=== PATIENT | male | born 1955 | race Caucasian/White ===

== ENCOUNTER 2016-07-24 18:08 | Inpatient (IN) | payer OTHER ==
[2016-07-24] MEDS ORDERED: Sodium Chloride 0.9% 1,000 ML IV SCH (18:45)
[2016-07-24] MEDS ORDERED: Azithromycin 250 MG Tab PO ONE (19:02)
[2016-07-24] MEDS ORDERED: cefTRIAXone 1 GM Vial IVPUSH ONE (19:02)
--- NOTE | 2016-07-24 19:02 | EDM.PDOC ---
Addendum entered and electronically signed by Eric Pederson PA 07/25/16 17:00 : PLEASE USE ER H&P FOR ADMISSION H&P Original Note: ED HISTORY OF PRESENT ILLNESS - General Chief Complaint: Respiratory Problem Stated Complaint: SHORT OF BREATH, COLD SYMPTOMS Time Seen by Provider: 07/24/16 18:37 Source of Information: Reports: Patient History Limitations: Reports: No limitations - History of Present Illness INITIAL COMMENTS - FREE TEXT/NARRATIVE: PT STATES HE HAS A PERSISTENT PRODUCTIVE COUGH AND HAS BEEN FEELING SHORT OF BREATH OVER LAST FEW DAYS. DEVELOPED FEVER TODAY. DENIES CP, OUT OF COUNTRY TRAVEL, FAMILY MEMBERS WITH SAME SYMPTOMS, N/V/D. Symptom Onset Date: 07/22/16 Timing/Duration: Reports: Day(s): Severity: mild Location, General: Reports: chest Improves with: Reports: None Worsens with: Reports: Movement Associated Symptoms (General): Reports: cough, cough w sputum, fever/chills, shortness of breath. Denies: chest pain, nausea/vomiting, syncope - Related Data Allergies/ADRs: Allergies Allergy/AdvReac Type Severity Reaction Status Date / Time No Known Drug Allergies Allergy NKDA Verified 07/24/16 19:07 Home Meds: Home Meds Meloxicam [Meloxicam] 15 mg PO DAILY 07/24/16 [History] oxyCODONE ER [OxyCONTIN] 40 mg PO BID 07/24/16 [History] oxyCODONE HCl/Acetaminophen [oxyCODONE-Acetaminophen 5-325] 1 tab PO Q4H PRN [History] ED ROS GENERAL - Review of Systems Review Of Systems: ROS reveals no pertinent complaints other than HPI. Constitutional: Reports: fever, chills HEENT: Reports: No symptoms Respiratory: Reports: Shortness of Breath, Cough, Sputum Cardiovascular: Reports: No symptoms Endocrine: Reports: no symptoms GI/Abdominal: Reports: No symptoms : Reports: no symptoms Musculoskeletal: Reports: no symptoms Skin: Reports: no symptoms Neurological: Reports: No Symptoms Psychiatric: Reports: No symptoms Hematologic/Lymphatic: Reports: no symptoms Immunologic: Reports: no symptoms ED EXAM, GENERAL - Physical Exam Exam: See Below Exam Limited By: No limitations General Appearance: alert, WD/WN, no apparent distress Eye Exam: bilateral eye: normal inspection Ears: normal canal, normal TMs Nose: normal inspection, normal mucosa, no blood Throat/Mouth: Normal inspection, Normal oropharynx, No airway compromise Head: atraumatic, normocephalic Neck: normal inspection Respiratory/Chest: no respiratory distress, rales (RIGHT BASE), rhonchi (BILAT APICAL) Cardiovascular: no murmur, no rub, tachycardia GI/Abdominal: normal bowel sounds, soft, non tender Back Exam: No: CVA tenderness (L), CVA tenderness (R) Extremities: normal inspection, no pedal edema Neurological: alert, oriented, normal cognition Psychiatric: normal affect, normal mood Skin Exam: Warm, Dry, Intact, Normal color, No rash Lymphatic: no adenopathy Course - Vital Signs Last Recorded V/S: Last Vital Signs Temp 101.8 F H 07/24/16 18:14 Pulse 114 H 07/24/16 18:14 Resp 24 H 07/24/16 18:14 BP 157/64 H 07/24/16 18:14 Pulse Ox 82 L 07/24/16 18:14 - Orders/Labs/Meds Orders: Active Orders 24 hr Category Date Time Status Peripheral IV Care [RC] . DIRECTED Care 07/24/16 18:39 Ordered Chest 2V [CR] Stat Exams 07/24/16 18:32 Ordered CBC WITH AUTO DIFF [HEME] Stat Lab 07/24/16 18:32 Ordered COMPREHENSIVE METABOLIC PN,CMP [CHEM] Stat Lab 07/24/16 18:38 Ordered CULTURE BLOOD [BC] Stat Lab 07/24/16 18:39 Ordered CULTURE BLOOD [BC] Stat Lab 07/24/16 18:39 Ordered INFLUENZA A+B AG SCREEN [RM] Stat Lab 07/24/16 18:48 Uncollected LACTIC ACID [CHEM] Stat Lab 07/24/16 18:38 Ordered UA W/MICROSCOPIC [URIN] Stat Lab 07/24/16 18:38 Uncollected Sodium Chloride 0.9% [Normal Saline] 1,000 ml Med 07/24/16 18:45 Ordered IV .BOLUS Sodium Chloride 0.9% [Syrex Flush] Med 07/24/16 18:38 Ordered 5 ml FLUSH Q8HR PRN Blood Culture x2 Reflex Set [OM.PC] Stat Oth 07/24/16 18:38 Ordered Peripheral IV Insertion Adult [OM.PC] Urgent Oth 07/24/16 18:38 Ordered Medication Orders Sodium Chloride (Normal Saline) 1,000 mls @ 1,000 mls/hr IV .BOLUS RANDA Sodium Chloride (Syrex Flush) 5 ml FLUSH Q8HR PRN PRN Reason: Keep Vein Open Meds: Medications Generic Name Dose Route Start Last Admin Trade Name Freq PRN Reason Stop Dose Admin Sodium Chloride 1,000 mls @ 1,000 mls/hr 07/24/16 18:45 Normal Saline IV .BOLUS RANDA Sodium Chloride 5 ml 07/24/16 18:38 Syrex Flush FLUSH Q8HR PRN Keep Vein Open - Radiology Interpretation Free Text/Narrative:: CXR SHOWS RIGHT LOWER LOBE PNEUMONIA - Re-Assessments/Exams Free Text/Narrative Re-Assessment/Exam: 07/24/16 19:39 PT NONTOXIC APPEARING, MAINTAINING SAT >92 ON NC. WILL ADMIT INPATIENT FOR PNEUMONIA / HYPOXIA Departure - Departure Time of Disposition: 19:42 Disposition: Admitted As Inpatient 64 Condition: fair Clinical Impression: Hypoxia Pneumonia Qualifiers: Pneumonia type: due to unspecified organism Laterality: right Lung location: lower lobe of lung Qualified Code(s): J18.1 - Lobar pneumonia, unspecified organism Fever Qualifiers: Fever type: unspecified Qualified Code(s): R50.9 - Fever, unspecified Forms: ED Department Discharge - My Orders Last 24 Hours: My Active Orders 07/24/16 18:32 Chest 2V [CR] Stat CBC WITH AUTO DIFF [HEME] Stat 07/24/16 18:38 COMPREHENSIVE METABOLIC PN,CMP [CHEM] Stat LACTIC ACID [CHEM] Stat UA W/MICROSCOPIC [URIN] Stat Sodium Chloride 0.9% [Syrex Flush] 5 ml FLUSH Q8HR PRN Blood Culture x2 Reflex Set [OM.PC] Stat Peripheral IV Insertion Adult [OM.PC] Urgent 07/24/16 18:39 Peripheral IV Care [RC] . DIRECTED CULTURE BLOOD [BC] Stat CULTURE BLOOD [BC] Stat 07/24/16 18:45 Sodium Chloride 0.9% [Normal Saline] 1,000 ml IV .BOLUS 07/24/16 18:48 INFLUENZA A+B AG SCREEN [RM] Stat - Assessment/Plan Last 24 Hours: My Active Orders 07/24/16 18:32 Chest 2V [CR] Stat CBC WITH AUTO DIFF [HEME] Stat 07/24/16 18:38 COMPREHENSIVE METABOLIC PN,CMP [CHEM] Stat LACTIC ACID [CHEM] Stat UA W/MICROSCOPIC [URIN] Stat Sodium Chloride 0.9% [Syrex Flush] 5 ml FLUSH Q8HR PRN Blood Culture x2 Reflex Set [OM.PC] Stat Peripheral IV Insertion Adult [OM.PC] Urgent 07/24/16 18:39 Peripheral IV Care [RC] . DIRECTED CULTURE BLOOD [BC] Stat CULTURE BLOOD [BC] Stat 07/24/16 18:45 Sodium Chloride 0.9% [Normal Saline] 1,000 ml IV .BOLUS 07/24/16 18:48 INFLUENZA A+B AG SCREEN [RM] Stat Assessment:: PNEUMONIA Plan: ADMIT INPATIENT
[2016-07-24] MEDS ORDERED: Acetaminophen 500 MG Tab PO ONE (19:03)
[2016-07-24 19:25] LABS: CHLORIDE,CL 98 mmol/L (98-115); SODIUM,NA 139 mmol/L (136-145)
[2016-07-24] MEDS ORDERED: Albuterol/Ipratropium 3.0-0.5 MG/3 ML Neb Soln NEB ONE (19:28)
[2016-07-24] MEDS ORDERED: Albuterol/Ipratropium 3.0-0.5 MG/3 ML Neb Soln ONE (19:33)
[2016-07-24] MEDS ORDERED: Acetaminophen 325 MG Tab PO PRN (19:35)
[2016-07-24] MEDS: Sodium Chloride 0.9% 1,000 ML IV SCH (20:52)
[2016-07-24] MEDS: oxyCODONE 5 MG Tab PO PRN (21:02)
[2016-07-25] MEDS: oxyCODONE 5 MG Tab PO PRN ×2 (00:20→05:00)
[2016-07-25] MEDS: guaiFENesin/Dextromethorphan 100-10 MG/5 ML Soln 5 ML Cup PO PRN (02:02)
[2016-07-25] MEDS: Sodium Chloride 0.9% 1,000 ML IV SCH ×2 (05:03→14:06)
[2016-07-25] MEDS: Albuterol/Ipratropium 3.0-0.5 MG/3 ML Neb Soln NEB PRN ×3 (05:26→19:48)
[2016-07-25] MEDS: Nicotine 14 MG/24 Hr Patch TRDERM SCH ×2 (06:01→19:53)
[2016-07-25] MEDS: oxyCODONE ER 10 MG TAB.ER PO SCH ×2 (06:02→21:02)
[2016-07-25] MEDS ORDERED: cefTRIAXone 1 GM in Sodium Chloride 0.9% 50 ML IV SCH (09:00)
[2016-07-25 09:31] LABS: CHLORIDE,CL 102 mmol/L (98-115); SODIUM,NA 140 mmol/L (136-145)
--- NOTE | 2016-07-25 09:44 | PCM.PN ---
- General Info Date of Service: 07/25/16 Admission Dx/Problem (Free Text): Right lower lobe pneumonia. - Review of Systems Systems Review Comment:: Dre is seen today on inpatient rounds. He was admitted 07/24/16 with right lower lobe pneumonia with associated hypoxia. Interestingly enough he did not have an elevated WBC but did have a left shift. He was also febrile. He states "this whole winter I just haven't felt well, do you think this could have been brewing for awhile?" He states today he feels better than yesterday. He notes yesterday he "could hardly get off the couch so I figured I better get in and be seen". His appetite has been good. - Patient Data Vitals - most recent: Last Vital Signs Temp 98.7 F 07/25/16 05:05 Pulse 92 07/25/16 05:26 Resp 24 H 07/25/16 05:05 BP 152/82 H 07/25/16 05:05 Pulse Ox 93 L 07/25/16 07:30 Weight - most recent: 201 lb 4.8 oz I&O - last 24 hours: Intake & Output 07/24/16 07/25/16 07/25/16 22:59 06:59 14:59 Intake Total 1540 1120 Output Total 0 400 Balance 1540 720 Lab Results last 24 hrs: Laboratory Results - last 24 hr 07/25/16 07/25/16 07/25/16 Range/Units 04:50 08:50 08:50 WBC 7.8 (5.0-10.0) 10^3/uL RBC 3.92 L (4.50-6.00) 10^6/uL Hgb 13.1 (13.0-17.0) g/dL Hct 39.2 L (40.0-52.0) % MCV 100.1 H (82.0-92.0) fL MCH 33.5 H (27.0-31.0) pg MCHC 33.4 (32.0-36.0) g/dL RDW 12.4 (11.5-14.5) % Plt Count 175 (150-300) 10^3/uL MPV 6.9 L (7.4-10.4) fL Neut % (Auto) 80.9 H (50.0-70.0) % Lymph % (Auto) 12.8 L (20.0-40.0) % [place] % (Auto) 6.1 (2.0-8.0) % Eos % (Auto) 0.2 L (1.0-3.0) % Baso % (Auto) 0.0 (0.0-1.0) % Neut # (Auto) 6.3 (2.5-7.0) 10^3/uL Lymph # (Auto) 1.0 (1.0-4.0) 10^3/uL [place] # (Auto) 0.5 (0.1-0.8) 10^3/uL Eos # (Auto) 0.0 L (0.1-0.3) 10^3/uL Baso # (Auto) 0.0 (0.0-0.1) 10^3/uL Sodium 140 (136-145) mmol/L Potassium 3.5 (3.3-5.3) mmol/L Chloride 102 (98-115) mmol/L Carbon Dioxide 28.4 (21.0-32.0) mmol/L BUN 17 (6-25) mg/dL Creatinine 0.55 (0.51-1.17) mg/dL Est Cr Clr Drug Dosing 139.26 mL/min Estimated GFR (MDRD) > 60 mL/min Glucose 179 H (70-110) mg/dL Hemoglobin A1c 5.8 H (4.3-5.7) % Calcium 8.7 (8.7-10.3) mg/dL Troponin I < 0.04 (0.00-0.070) ng/mL Specimen Type Urinvoid Urine Color Ronda H (YELLOW) Urine Appearance Clear (CLEAR) Urine pH 6.0 (5.0-9.0) Ur Specific [place] >= 1.030 (1.005-1.030) Urine Protein >=300 H (NEGATIVE) mg/dL Urine Glucose (UA) 100 H (NEGATIVE) mg/dL Urine Ketones Trace H (NEGATIVE) mg/dL Urine Occult Blood Large H (NEGATIVE) Urine Nitrite Negative (NEGATIVE) Urine Bilirubin Small H (NEGATIVE) Urine Urobilinogen 2.0 H (0.2-1.0) E.U./dL Ur Leukocyte Esterase Negative (NEGATIVE) Urine RBC 0-5 /HPF Urine WBC 0-5 /HPF Ur Epithelial Cells Rare /LPF Urine Bacteria Occasional (NONE TO FEW) /HPF Urine Mucus Moderate H (NEGATIVE) /LPF Med Orders - Current: Current Medications Acetaminophen (Tylenol) 650 mg PO Q4H PRN PRN Reason: Pain (Mild 1-3)/fever Last Admin: 07/25/16 00:21 Dose: 650 mg Albuterol/Ipratropium (Duoneb 3.0-0.5 Mg/3 Ml) 3 ml NEB Q4H PRN PRN Reason: Shortness Of Breath/wheezing Last Admin: 07/25/16 05:26 Dose: 3 ml Ceftriaxone Sodium (Rocephin) 1 gm IV Q24H RANDA Guaifenesin/Phenylephrine HCl (Robitussin Dm) 10 ml PO Q4H PRN PRN Reason: Cough Last Admin: 07/25/16 02:02 Dose: 10 ml Sodium Chloride (Normal Saline) 1,000 mls @ 1,000 mls/hr IV .BOLUS [facility] Last Admin: 07/24/16 19:00 Dose: 1,000 mls/hr Sodium Chloride (Normal Saline) 1,000 mls @ 125 mls/hr IV ASDIRECTED [facility] Last Admin: 07/25/16 05:03 Dose: 125 mls/hr Azithromycin 500 mg/ Sodium (Chloride) 250 mls @ 250 mls/hr IV Q24H [facility] Nicotine (Habitrol) 14 mg TRDERM DAILY [facility] Last Admin: 07/25/16 06:01 Dose: 14 mg Oxycodone HCl (Oxycontin) 40 mg PO BID [facility] Last Admin: 07/25/16 06:02 Dose: 40 mg Oxycodone/Acetaminophen (Percocet 325-5 Mg) 2 tab PO Q4H PRN PRN Reason: Pain Sodium Chloride (Syrex Flush) 5 ml FLUSH Q8HR PRN PRN Reason: Keep Vein Open Discontinued Medications Acetaminophen (Tylenol Extra Strength) 1,000 mg PO ONETIME ONE Stop: 07/24/16 19:04 Last Admin: 07/24/16 19:16 Dose: 1,000 mg Albuterol/Ipratropium (Duoneb 3.0-0.5 Mg/3 Ml) 3 ml NEB ONETIME ONE Stop: 07/24/16 19:29 Last Admin: 07/24/16 19:39 Dose: 3 ml Albuterol/Ipratropium (Duoneb 3.0-0.5 Mg/3 Ml) Confirm Administered Dose 3 ml .ROUTE .STK-MED ONE Stop: 07/24/16 19:34 Last Admin: 07/25/16 01:11 Dose: Not Given Azithromycin (Zithromax) 500 mg PO ONETIME ONE Stop: 07/24/16 19:03 Last Admin: 07/24/16 19:16 Dose: 500 mg Ceftriaxone Sodium (Rocephin) 1 gm IVPUSH ONETIME ONE Stop: 07/24/16 19:03 Last Admin: 07/24/16 19:16 Dose: 1 gm Oxycodone HCl (Oxycodone) 5 mg PO Q4H PRN PRN Reason: Pain (moderate 4-6) Last Admin: 07/25/16 05:00 Dose: 5 mg - Exam Quality Assessment: supplemental oxygen General: alert, oriented, cooperative, no acute distress Lungs: Normal respiratory effort, Crackles (Right lung base) Cardiovascular: Regular Rate, Regular Rhythm, No Murmurs Abdomen: bowel sounds present Extremities: no edema - Problem List & Annotations (1) Right lower lobe pneumonia SNOMED Code(s): 971077215 Code(s): J18.1 - LOBAR PNEUMONIA, UNSPECIFIED ORGANISM Status: Acute Current Visit: Yes (2) Hypoxia SNOMED Code(s): 300471573, 669555394 Code(s): R09.02 - HYPOXEMIA Status: Acute Current Visit: Yes (3) Blood glucose elevated SNOMED Code(s): 28571825 Code(s): R73.9 - HYPERGLYCEMIA, UNSPECIFIED Status: Acute Current Visit: Yes - Problem List Review Problem List Initiated/Reviewed/Updated: Yes - My Orders Last 24 Hours: My Active Orders 07/25/16 01:19 Dextromethorphan/guaiFENesin [Robitussin DM] 10 ml PO Q4H PRN 07/25/16 08:59 Acetaminophen/oxyCODONE [Percocet 325-5 MG] 2 tab PO Q4H PRN 07/25/16 09:00 Azithromycin [Zithromax] 500 mg Sodium Chloride 0.9% [Normal Saline] 250 ml IV Q24H cefTRIAXone [Rocephin] 1 gm IV Q24H 07/25/16 09:43 Respiratory Care Assess and Treatment [CONS] Routine - Plan Plan:: Will continue with azithromycin and rocephin. He has blood and sputum cultures ordered. Will continue with home pain medications. He has an elevated blood glucose in 2 readings, I checked an A1C which was 5.8. Will need follow-up for this as an outpatient but no evidence of diabetes currently. Will consult with RT as he is on oxygen currently and this is not something he has needed at home.
[2016-07-25] MEDS: Acetaminophen/oxyCODONE 325-5 MG Tab PO PRN ×3 (11:05→21:17)
[2016-07-25] MEDS: cefTRIAXone 1 GM Vial IV SCH (11:05)
[2016-07-25] MEDS: Azithromycin 500 MG in Sodium Chloride 0.9% 250 ML IV SCH (12:08)
[2016-07-25] MEDS ORDERED: LORazepam 0.5 MG Tab ONE (20:22)
[2016-07-25] MEDS ORDERED: Dexamethasone 4 MG/ML SDV ONE (20:22)
[2016-07-25] MEDS ORDERED: Budesonide 0.5 MG/2 ML Neb Susp ONE (20:22)
[2016-07-26] MEDS: Acetaminophen/oxyCODONE 325-5 MG Tab PO PRN ×5 (02:43→20:19)
[2016-07-26] MEDS: oxyCODONE ER 10 MG TAB.ER PO SCH ×2 (08:24→21:37)
[2016-07-26] MEDS: Nicotine 14 MG/24 Hr Patch TRDERM SCH (08:25)
[2016-07-26] MEDS: cefTRIAXone 1 GM Vial IV SCH (08:25)
[2016-07-26] MEDS: guaiFENesin/Dextromethorphan 100-10 MG/5 ML Soln 5 ML Cup PO PRN ×2 (08:29→20:23)
--- NOTE | 2016-07-26 08:47 | PCM.PN ---
- General Info Date of Service: 07/26/16 Admission Dx/Problem (Free Text): Right lower lobe pneumonia. - Review of Systems Systems Review Comment:: Dre is seen today on inpatient rounds. He was admitted on 07/24/16 with RLL pneumonia. He states last evening he had a time where he felt like he could not breathe. He states "I'm just not used to having that feeling and it's probably just because of everything that's going on". His sats were noted to be 92% on 2 L and so his oxygen was turned up to 5L. The on-call provider was notified and he was given decadron 8 mg as well as lorazepam 0.5 mg and pulmicort. Dre did sleep after the lorazepam and because of this his oxycodone dosing got "screwed up" and so he is having some pain this morning but otherwise he feels like his breathing is better. His oxygen has been turned back down to 2L and his sats are 94%. He continues to have a productive cough. His appetite is good. He has been afebrile for the past 24 hours. He continues on azithromycin and rocephin. Sputum culture is pending, blood cultures have shown no growth to date. - Patient Data Vitals - most recent: Last Vital Signs Temp 98.1 F 07/26/16 06:15 Pulse 66 07/26/16 06:15 Resp 20 07/26/16 06:15 BP 131/69 07/26/16 06:15 Pulse Ox 96 07/26/16 06:15 Weight - most recent: 201 lb 4.8 oz I&O - last 24 hours: Intake & Output 07/25/16 07/26/16 07/26/16 22:59 06:59 14:59 Intake Total 1279 50 Balance 1279 50 Lab Results last 24 hrs: Laboratory Results - last 24 hr 07/25/16 07/25/16 Range/Units 08:50 08:50 WBC 7.8 (5.0-10.0) 10^3/uL RBC 3.92 L (4.50-6.00) 10^6/uL Hgb 13.1 (13.0-17.0) g/dL Hct 39.2 L (40.0-52.0) % MCV 100.1 H (82.0-92.0) fL MCH 33.5 H (27.0-31.0) pg MCHC 33.4 (32.0-36.0) g/dL RDW 12.4 (11.5-14.5) % Plt Count 175 (150-300) 10^3/uL MPV 6.9 L (7.4-10.4) fL Neut % (Auto) 80.9 H (50.0-70.0) % Lymph % (Auto) 12.8 L (20.0-40.0) % [place] % (Auto) 6.1 (2.0-8.0) % Eos % (Auto) 0.2 L (1.0-3.0) % Baso % (Auto) 0.0 (0.0-1.0) % Neut # (Auto) 6.3 (2.5-7.0) 10^3/uL Lymph # (Auto) 1.0 (1.0-4.0) 10^3/uL [place] # (Auto) 0.5 (0.1-0.8) 10^3/uL Eos # (Auto) 0.0 L (0.1-0.3) 10^3/uL Baso # (Auto) 0.0 (0.0-0.1) 10^3/uL Sodium 140 (136-145) mmol/L Potassium 3.5 (3.3-5.3) mmol/L Chloride 102 (98-115) mmol/L Carbon Dioxide 28.4 (21.0-32.0) mmol/L BUN 17 (6-25) mg/dL Creatinine 0.55 (0.51-1.17) mg/dL Est Cr Clr Drug Dosing 139.26 mL/min Estimated GFR (MDRD) > 60 mL/min Glucose 179 H (70-110) mg/dL Hemoglobin A1c 5.8 H (4.3-5.7) % Calcium 8.7 (8.7-10.3) mg/dL Troponin I < 0.04 (0.00-0.070) ng/mL [place] Results last 24 hrs: Microbiology 07/24/16 22:30 Gram Stain - Final Sputum - Expectorated Med Orders - Current: Current Medications Acetaminophen (Tylenol) 650 mg PO Q4H PRN PRN Reason: Pain (Mild 1-3)/fever Last Admin: 07/25/16 00:21 Dose: 650 mg Albuterol/Ipratropium (Duoneb 3.0-0.5 Mg/3 Ml) 3 ml NEB Q4H [facility] Ceftriaxone Sodium (Rocephin) 1 gm IV Q24H [facility] Last Admin: 07/26/16 08:25 Dose: 1 gm Guaifenesin/Phenylephrine HCl (Robitussin Dm) 10 ml PO Q4H PRN PRN Reason: Cough Last Admin: 07/26/16 08:29 Dose: 10 ml Azithromycin 500 mg/ Sodium (Chloride) 250 mls @ 250 mls/hr IV Q24H [facility] [place] Last Admin: 07/25/16 12:08 Dose: 250 mls/hr Methylprednisolone Sodium Succinate (Solu-Medrol) 125 mg IVPUSH ONETIME ONE Stop: 07/26/16 08:33 Nicotine (Habitrol) 14 mg TRDERM DAILY [facility] [place] Last Admin: 07/26/16 08:25 Dose: 14 mg Oxycodone HCl (Oxycontin) 40 mg PO BID [facility] [place] Last Admin: 07/26/16 08:24 Dose: 40 mg Oxycodone/Acetaminophen (Percocet 325-5 Mg) 2 tab PO Q4H PRN PRN Reason: Pain Last Admin: 07/26/16 07:51 Dose: 2 tab Fluticasone/Salmeterol (Advair Diskus 250-50) 1 puff INH BID [facility] [place] Sodium Chloride (Syrex Flush) 5 ml FLUSH Q8HR PRN PRN Reason: Keep Vein Open Discontinued Medications Acetaminophen (Tylenol Extra Strength) 1,000 mg PO ONETIME ONE Stop: 07/24/16 19:04 Last Admin: 07/24/16 19:16 Dose: 1,000 mg Albuterol/Ipratropium (Duoneb 3.0-0.5 Mg/3 Ml) 3 ml NEB ONETIME ONE Stop: 07/24/16 19:29 Last Admin: 07/24/16 19:39 Dose: 3 ml Albuterol/Ipratropium (Duoneb 3.0-0.5 Mg/3 Ml) Confirm Administered Dose 3 ml .ROUTE .STK-MED ONE Stop: 07/24/16 19:34 Last Admin: 07/25/16 01:11 Dose: Not Given Albuterol/Ipratropium (Duoneb 3.0-0.5 Mg/3 Ml) 3 ml NEB Q4H PRN PRN Reason: Shortness Of Breath/wheezing Last Admin: 07/25/16 19:48 Dose: 3 ml Azithromycin (Zithromax) 500 mg PO ONETIME ONE Stop: 07/24/16 19:03 Last Admin: 07/24/16 19:16 Dose: 500 mg Budesonide (Pulmicort) Confirm Administered Dose 0.5 mg .ROUTE .STK-MED ONE Stop: 07/25/16 20:23 Last Admin: 07/25/16 21:03 Dose: 0.5 mg Ceftriaxone Sodium (Rocephin) 1 gm IVPUSH ONETIME ONE Stop: 07/24/16 19:03 Last Admin: 07/24/16 19:16 Dose: 1 gm Dexamethasone (Dexamethasone) Confirm Administered Dose 8 mg .ROUTE .STK-MED ONE Stop: 07/25/16 20:23 Last Admin: 07/25/16 21:04 Dose: 8 mg Sodium Chloride (Normal Saline) 1,000 mls @ 1,000 mls/hr IV .BOLUS [facility] Last Admin: 07/24/16 19:00 Dose: 1,000 mls/hr Sodium Chloride (Normal Saline) 1,000 mls @ 125 mls/hr IV ASDIRECTED [facility] Last Admin: 07/25/16 14:06 Dose: 125 mls/hr Lorazepam (Ativan) Confirm Administered Dose 1 mg .ROUTE .STK-MED ONE Stop: 07/25/16 20:23 Last Admin: 07/25/16 21:03 Dose: 1 mg Oxycodone HCl (Oxycodone) 5 mg PO Q4H PRN PRN Reason: Pain (moderate 4-6) Last Admin: 07/25/16 05:00 Dose: 5 mg - Exam Quality Assessment: supplemental oxygen General: alert, oriented, cooperative, no acute distress Lungs: Crackles (He has bibasilar crackles, worse on the right than the left), Wheezing (Diffuse wheezing throughout all lung [place] both anterior and posterior) Cardiovascular: Regular Rate, Regular Rhythm, No Murmurs Abdomen: bowel sounds present - Problem List & Annotations (1) Right lower lobe pneumonia SNOMED Code(s): 248459762 Code(s): J18.1 - LOBAR PNEUMONIA, UNSPECIFIED ORGANISM Status: Acute Current Visit: Yes (2) Hypoxia SNOMED Code(s): 323495851, 691163058 Code(s): R09.02 - HYPOXEMIA Status: Acute Current Visit: Yes (3) Blood glucose elevated SNOMED Code(s): 76605659 Code(s): R73.9 - HYPERGLYCEMIA, UNSPECIFIED Status: Acute Current Visit: Yes - Problem List Review Problem List Initiated/Reviewed/Updated: Yes - My Orders Last 24 Hours: My Active Orders 07/25/16 08:59 Acetaminophen/oxyCODONE [Percocet 325-5 MG] 2 tab PO Q4H PRN 07/25/16 09:00 Azithromycin [Zithromax] 500 mg Sodium Chloride 0.9% [Normal Saline] 250 ml IV Q24H cefTRIAXone [Rocephin] 1 gm IV Q24H 07/25/16 09:43 Respiratory Care Assess and Treatment [CONS] Routine 07/25/16 12:21 Incentive Spirometry [RT Incentive Spirometry] [RC] Q1HWA 07/26/16 08:32 Chest 2V [CR] Routine BASIC METABOLIC PANEL,BMP [CHEM] Routine CBC WITH AUTO DIFF [HEME] Routine methylPREDNISolone Sod Succ [Solu-MEDROL] 125 mg IVPUSH ONETIME ONE 07/26/16 08:40 RT Post Treatment Assessment [RC] Click To Edit RT Pre-Treatment Assessment [RC] Click To Edit 07/26/16 08:45 Albuterol/Ipratropium [DuoNeb 3.0-0.5 MG/3 ML] 3 ml NEB Q4H 07/26/16 09:00 Fluticasone/Salmeterol [Advair Diskus 250-50] 1 puff INH BID - Plan Plan:: Will continue with azithromycin and rocephin. His lungs actually sound a bit worse to me today than yesterday, will repeat CXR and consider chest CT depending on x-ray results. Will repeat CBC and BMP today. Will administer solumedrol 125 mg IV today given the wheezing and will also schedule his duonebs q4 hours instead of having them PRN. He uses symbicort at home occasionally and notes it really helps. We do not have that on formulary here and so will substitute with Advair 250/50 1 puff PO BID. He is in agreement with this plan of care.
[2016-07-26] MEDS: Albuterol/Ipratropium 3.0-0.5 MG/3 ML Neb Soln NEB SCH ×4 (08:50→21:43)
[2016-07-26] MEDS ORDERED: methylPREDNISolone Sodium Succinate 125 MG/2 ML SDV IVPUSH ONE (09:00)
[2016-07-26 09:10] LABS: CHLORIDE,CL 102 mmol/L (98-115); SODIUM,NA 141 mmol/L (136-145)
[2016-07-26] MEDS: Azithromycin 500 MG in Sodium Chloride 0.9% 250 ML IV SCH (09:10)
[2016-07-26] MEDS: Fluticasone/Salmeterol 250-50 MCG Inhalation Powder 14/Diskus INH SCH ×2 (09:21→21:30)
[2016-07-26] MEDS: Sodium Chloride 0.9% 5 ML Syringe FLUSH PRN (22:05)
[2016-07-27] MEDS: Acetaminophen/oxyCODONE 325-5 MG Tab PO PRN ×5 (01:14→20:20)
[2016-07-27] MEDS: Albuterol/Ipratropium 3.0-0.5 MG/3 ML Neb Soln NEB SCH ×6 (01:17→21:00)
[2016-07-27] MEDS: guaiFENesin/Dextromethorphan 100-10 MG/5 ML Soln 5 ML Cup PO PRN ×4 (01:32→20:22)
[2016-07-27] MEDS ORDERED: Magnesium Hydroxide 400 MG/5 ML Susp 30 ML Cup PO PRN (07:31)
[2016-07-27] MEDS: Nicotine 14 MG/24 Hr Patch TRDERM SCH (08:03)
[2016-07-27] MEDS: oxyCODONE ER 10 MG TAB.ER PO SCH ×2 (08:07→20:20)
[2016-07-27] MEDS: Fluticasone/Salmeterol 250-50 MCG Inhalation Powder 14/Diskus INH SCH ×2 (09:30→20:23)
[2016-07-27] MEDS: cefTRIAXone 1 GM Vial IV SCH (09:58)
[2016-07-27] MEDS: Azithromycin 500 MG in Sodium Chloride 0.9% 250 ML IV SCH (10:01)
[2016-07-27] MEDS: LORazepam 0.5 MG Tab PO PRN (15:57)
[2016-07-28] MEDS: Acetaminophen/oxyCODONE 325-5 MG Tab PO PRN ×5 (00:07→19:34)
[2016-07-28] MEDS: LORazepam 0.5 MG Tab PO PRN ×2 (00:08→08:42)
[2016-07-28] MEDS: Albuterol/Ipratropium 3.0-0.5 MG/3 ML Neb Soln NEB SCH ×6 (04:47→21:31)
[2016-07-28] MEDS: oxyCODONE ER 10 MG TAB.ER PO SCH ×2 (08:39→21:32)
[2016-07-28] MEDS: Nicotine 14 MG/24 Hr Patch TRDERM SCH (08:43)
[2016-07-28] MEDS: Levofloxacin/Dextrose 5%-Water 500 MG in Premix Bag 1 BAG IV SCH (08:44)
[2016-07-28] MEDS: cefTRIAXone 1 GM Vial IV SCH (08:45)
[2016-07-28] MEDS ORDERED: Levofloxacin/Dextrose 5%-Water 250 MG in Premix Bag 1 BAG IV SCH ×2 (09:00→10:00)
[2016-07-28] MEDS: Fluticasone/Salmeterol 250-50 MCG Inhalation Powder 14/Diskus INH SCH ×2 (09:38→21:31)
--- NOTE | 2016-07-28 12:26 | PCM.PN ---
- General Info Date of Service: 07/27/16 Admission Dx/Problem (Free Text): PT WAS SEEN TODAY FOR INPATIENT ROUNDS. INITIALLY ADMITTED ON 07/24/16 WITH DIAGNOSIS OF RLL PNEUMONIA AND HYPOXIA. PT HAS BEEN FOLLOWED BY DR FULTON AND IS PROGRESSING SLOWLY. REQUIRES O2 TO MAINTAIN SATS > 92% AND DESATS TO HIGH 80' S WITH AMBULATION. ON ALB/ATRO NEBS Q4. TAKES CHRONIC PAIN MEDICATION FOR LOW BACK PAIN. PT HAS BEEN AFEBRILE, TAKING PO FOOD AND FLUID WELL. ROCEPHIN AND ZITHRO QD. SPUTUM CULTURES RESULTED IN GRAM POSITIVE COCCI. WILL START ON LEVAQUIN FOR COVERAGE Functional Status: Reports: pain controlled, tolerating diet, ambulating - Review of Systems General: Reports: No Symptoms HEENT: Reports: no symptoms Pulmonary: Reports: cough, wheezing Cardiovascular: Reports: No Symptoms Gastrointestinal: Reports: No symptoms Genitourinary: Reports: no symptoms Musculoskeletal: Reports: back pain (OF CHRONIC NATURE) Neurological: Reports: No Symptoms Psychiatric: Reports: no symptoms - Patient Data Vitals - most recent: Last Vital Signs Temp 97.4 F 07/28/16 07:00 Pulse 78 07/28/16 07:00 Resp 21 H 07/28/16 07:00 BP 132/74 07/28/16 07:00 Pulse Ox 94 L 07/28/16 09:19 Weight - most recent: 201 lb 4.8 oz I&O - last 24 hours: Intake & Output 07/27/16 07/28/16 07/28/16 22:59 06:59 14:59 Intake Total 550 300 Output Total 450 Balance 100 300 [place] Results last 24 hrs: Microbiology 07/24/16 22:30 Gram Stain - Final Sputum - Expectorated Sputum Culture - Final YEAST Med Orders - Current: Current Medications Acetaminophen (Tylenol) 650 mg PO Q4H PRN PRN Reason: Pain (Mild 1-3)/fever Last Admin: 07/25/16 00:21 Dose: 650 mg Albuterol/Ipratropium (Duoneb 3.0-0.5 Mg/3 Ml) 3 ml NEB Q4HRRT [facility] Ceftriaxone Sodium (Rocephin) 1 gm IV Q24H [facility] Last Admin: 07/28/16 08:45 Dose: 1 gm Guaifenesin/Phenylephrine HCl (Robitussin Dm) 10 ml PO Q4H PRN PRN Reason: Cough Last Admin: 07/27/16 20:22 Dose: 10 ml Levofloxacin/Dextrose 500 mg/ (Premix) 100 mls @ 100 mls/hr IV Q24H [facility] Last Admin: 07/28/16 08:44 Dose: 100 mls/hr Levofloxacin/Dextrose 250 mg/ (Premix) 50 mls @ 50 mls/hr IV Q24H [facility] Last Admin: 07/28/16 11:23 Dose: 50 mls/hr Lorazepam (Ativan) 1 mg PO Q8H PRN PRN Reason: Anxiety Last Admin: 07/28/16 08:42 Dose: 1 mg Magnesium Hydroxide (Milk Of Magnesia) 30 ml PO DAILY PRN PRN Reason: Congestion Nicotine (Habitrol) 14 mg TRDERM DAILY [facility] Last Admin: 07/28/16 08:43 Dose: 14 mg Oxycodone HCl (Oxycontin) 40 mg PO BID [facility] Last Admin: 07/28/16 08:39 Dose: 40 mg Oxycodone/Acetaminophen (Percocet 325-5 Mg) 2 tab PO Q4H PRN PRN Reason: Pain Last Admin: 07/28/16 10:42 Dose: 2 tab Fluticasone/Salmeterol (Advair Diskus 250-50) 1 puff INH BID [facility] Last Admin: 07/28/16 09:26 Dose: 1 puff Sodium Chloride (Syrex Flush) 5 ml FLUSH Q8HR PRN PRN Reason: Keep Vein Open Last Admin: 07/26/16 22:05 Dose: 5 ml Discontinued Medications Acetaminophen (Tylenol Extra Strength) 1,000 mg PO ONETIME ONE Stop: 07/24/16 19:04 Last Admin: 07/24/16 19:16 Dose: 1,000 mg Albuterol/Ipratropium (Duoneb 3.0-0.5 Mg/3 Ml) 3 ml NEB ONETIME ONE Stop: 07/24/16 19:29 Last Admin: 07/24/16 19:39 Dose: 3 ml Albuterol/Ipratropium (Duoneb 3.0-0.5 Mg/3 Ml) Confirm Administered Dose 3 ml .ROUTE .STK-MED ONE Stop: 07/24/16 19:34 Last Admin: 07/25/16 01:11 Dose: Not Given Albuterol/Ipratropium (Duoneb 3.0-0.5 Mg/3 Ml) 3 ml NEB Q4H PRN PRN Reason: Shortness Of Breath/wheezing Last Admin: 07/25/16 19:48 Dose: 3 ml Albuterol/Ipratropium (Duoneb 3.0-0.5 Mg/3 Ml) 3 ml NEB Q4HRRT [facility] Last Admin: 07/28/16 09:26 Dose: 3 ml Azithromycin (Zithromax) 500 mg PO ONETIME ONE Stop: 07/24/16 19:03 Last Admin: 07/24/16 19:16 Dose: 500 mg Budesonide (Pulmicort) Confirm Administered Dose 0.5 mg .ROUTE .STK-MED ONE Stop: 07/25/16 20:23 Last Admin: 07/25/16 21:03 Dose: 0.5 mg Ceftriaxone Sodium (Rocephin) 1 gm IVPUSH ONETIME ONE Stop: 07/24/16 19:03 Last Admin: 07/24/16 19:16 Dose: 1 gm Dexamethasone (Dexamethasone) Confirm Administered Dose 8 mg .ROUTE .STK-MED ONE Stop: 07/25/16 20:23 Last Admin: 07/25/16 21:04 Dose: 8 mg Sodium Chloride (Normal Saline) 1,000 mls @ 1,000 mls/hr IV .BOLUS RANDA Last Admin: 07/24/16 19:00 Dose: 1,000 mls/hr Sodium Chloride (Normal Saline) 1,000 mls @ 125 mls/hr IV ASDIRECTED [facility] Last Admin: 07/25/16 14:06 Dose: 125 mls/hr Azithromycin 500 mg/ Sodium (Chloride) 250 mls @ 250 mls/hr IV Q24H [facility] Last Admin: 07/27/16 10:01 Dose: 250 mls/hr Levofloxacin/Dextrose 250 mg/ (Premix) 50 mls @ 50 mls/hr IV Q24H [facility] Lorazepam (Ativan) Confirm Administered Dose 1 mg .ROUTE .STK-MED ONE Stop: 07/25/16 20:23 Last Admin: 07/25/16 21:03 Dose: 1 mg Methylprednisolone Sodium Succinate (Solu-Medrol) 125 mg IVPUSH ONETIME ONE Stop: 07/26/16 09:01 Last Admin: 03/28/17 09:20 Dose: 125 mg Oxycodone HCl (Oxycodone) 5 mg PO Q4H PRN PRN Reason: Pain (moderate 4-6) Last Admin: 07/25/16 05:00 Dose: 5 mg - Exam Quality Assessment: supplemental oxygen General: alert, oriented, cooperative, no acute distress HEENT: Pupils equal, Pupils reactive, Mucous membr. moist/pink Neck: supple Lungs: Wheezing (END EXPIRATORY) Cardiovascular: Regular Rate, Regular Rhythm Abdomen: bowel sounds present, soft, no tenderness, no distension Back Exam: normal inspection, paraspinal tenderness (OF CHRONIC NATURE / NO POINT TENDERNESS) Extremities: no edema, normal pulses, no tenderness/swelling Skin: warm, dry, intact Neurological: no new focal deficit Psy/Mental Status: alert, normal affect, normal mood - Problem List Review Problem List Initiated/Reviewed/Updated: Yes - My Orders Last 24 Hours: My Active Orders 07/27/16 15:42 LORazepam [Ativan] 1 mg PO Q8H PRN 07/28/16 09:00 Levofloxacin/Dextrose 5%-Water [Levaquin in D5W 500 MG/100 ML] 500 mg Premix Bag 1 bag IV Q24H 07/28/16 10:00 Levofloxacin/Dextrose 5%-Water [Levaquin in D5W 250 MG/50 ML] 250 mg Premix Bag 1 bag IV Q24H 07/28/16 13:00 Albuterol/Ipratropium [DuoNeb 3.0-0.5 MG/3 ML] 3 ml NEB Q4HRRT - Assessment Assessment:: CONTINUE ROCEPHIN / D/C ZITHRO / ADD LEVAQUIN / CONTINUE NEB TREATMENTS AND O2 TO MAINTAIN SAT > 92% / AMBULATE / CONTINUE SOLUMEDROL / ATIVAN QHS FOR ANXIETY / REEVALUATE TOMORROW TO POSSIBLE DISCHARGE - Plan Plan:: Will continue with azithromycin and rocephin. His lungs actually sound a bit worse to me today than yesterday, will repeat CXR and consider chest CT depending on x-ray results. Will repeat CBC and BMP today. Will administer solumedrol 125 mg IV today given the wheezing and will also schedule his duonebs q4 hours instead of having them PRN. He uses symbicort at home occasionally and notes it really helps. We do not have that on formulary here and so will substitute with Advair 250/50 1 puff PO BID. He is in agreement with this plan of care.
--- NOTE | 2016-07-28 12:34 | PCM.PN ---
- General Info Date of Service: 07/28/16 Admission Dx/Problem (Free Text): PT WAS SEEN TODAY FOR INPATIENT ROUNDS. INITIALLY ADMITTED ON 07/24/16 WITH DIAGNOSIS OF RLL PNEUMONIA AND HYPOXIA. PT HAS BEEN FOLLOWED BY DR FULTON AND IS PROGRESSING SLOWLY. REQUIRES O2 TO MAINTAIN SATS > 92% AND DESATS TO HIGH 80' S WITH AMBULATION. ON ALB/ATRO NEBS Q4. TAKES CHRONIC PAIN MEDICATION FOR LOW BACK PAIN. PT HAS BEEN AFEBRILE, TAKING PO FOOD AND FLUID WELL. ROCEPHIN AND ZITHRO QD. SPUTUM CULTURES RESULTED IN GRAM POSITIVE COCCI. WILL START ON LEVAQUIN FOR COVERAGE Functional Status: Reports: pain controlled, tolerating diet, ambulating - Review of Systems General: Reports: No Symptoms HEENT: Reports: no symptoms Pulmonary: Reports: cough, wheezing Cardiovascular: Reports: No Symptoms Gastrointestinal: Reports: No symptoms Genitourinary: Reports: no symptoms Musculoskeletal: Reports: back pain Skin: Reports: no symptoms Neurological: Reports: No Symptoms Psychiatric: Reports: no symptoms - Patient Data Vitals - most recent: Last Vital Signs Temp 97.4 F 07/28/16 07:00 Pulse 78 07/28/16 07:00 Resp 21 H 07/28/16 07:00 BP 132/74 07/28/16 07:00 Pulse Ox 94 L 07/28/16 09:19 Weight - most recent: 201 lb 4.8 oz I&O - last 24 hours: Intake & Output 07/27/16 07/28/16 07/28/16 22:59 06:59 14:59 Intake Total 550 300 Output Total 450 Balance 100 300 [place] Results last 24 hrs: Microbiology 07/24/16 22:30 Gram Stain - Final Sputum - Expectorated Sputum Culture - Final YEAST Med Orders - Current: Current Medications Acetaminophen (Tylenol) 650 mg PO Q4H PRN PRN Reason: Pain (Mild 1-3)/fever Last Admin: 07/25/16 00:21 Dose: 650 mg Albuterol/Ipratropium (Duoneb 3.0-0.5 Mg/3 Ml) 3 ml NEB Q4HRRT [facility] Ceftriaxone Sodium (Rocephin) 1 gm IV Q24H [facility] Last Admin: 07/28/16 08:45 Dose: 1 gm Guaifenesin/Phenylephrine HCl (Robitussin Dm) 10 ml PO Q4H PRN PRN Reason: Cough Last Admin: 07/27/16 20:22 Dose: 10 ml Levofloxacin/Dextrose 500 mg/ (Premix) 100 mls @ 100 mls/hr IV Q24H [facility] Last Admin: 07/28/16 08:44 Dose: 100 mls/hr Levofloxacin/Dextrose 250 mg/ (Premix) 50 mls @ 50 mls/hr IV Q24H [facility] Last Admin: 07/28/16 11:23 Dose: 50 mls/hr Lorazepam (Ativan) 1 mg PO Q8H PRN PRN Reason: Anxiety Last Admin: 07/28/16 08:42 Dose: 1 mg Magnesium Hydroxide (Milk Of Magnesia) 30 ml PO DAILY PRN PRN Reason: Congestion Nicotine (Habitrol) 14 mg TRDERM DAILY [facility] Last Admin: 07/28/16 08:43 Dose: 14 mg Oxycodone HCl (Oxycontin) 40 mg PO BID [facility] Last Admin: 07/28/16 08:39 Dose: 40 mg Oxycodone/Acetaminophen (Percocet 325-5 Mg) 2 tab PO Q4H PRN PRN Reason: Pain Last Admin: 07/28/16 10:42 Dose: 2 tab Fluticasone/Salmeterol (Advair Diskus 250-50) 1 puff INH BID [facility] Last Admin: 07/28/16 09:26 Dose: 1 puff Sodium Chloride (Syrex Flush) 5 ml FLUSH Q8HR PRN PRN Reason: Keep Vein Open Last Admin: 07/26/16 22:05 Dose: 5 ml Discontinued Medications Acetaminophen (Tylenol Extra Strength) 1,000 mg PO ONETIME ONE Stop: 07/24/16 19:04 Last Admin: 07/24/16 19:16 Dose: 1,000 mg Albuterol/Ipratropium (Duoneb 3.0-0.5 Mg/3 Ml) 3 ml NEB ONETIME ONE Stop: 07/24/16 19:29 Last Admin: 07/24/16 19:39 Dose: 3 ml Albuterol/Ipratropium (Duoneb 3.0-0.5 Mg/3 Ml) Confirm Administered Dose 3 ml .ROUTE .STK-MED ONE Stop: 07/24/16 19:34 Last Admin: 07/25/16 01:11 Dose: Not Given Albuterol/Ipratropium (Duoneb 3.0-0.5 Mg/3 Ml) 3 ml NEB Q4H PRN PRN Reason: Shortness Of Breath/wheezing Last Admin: 07/25/16 19:48 Dose: 3 ml Albuterol/Ipratropium (Duoneb 3.0-0.5 Mg/3 Ml) 3 ml NEB Q4HRRT [facility] Last Admin: 07/28/16 09:26 Dose: 3 ml Azithromycin (Zithromax) 500 mg PO ONETIME ONE Stop: 07/24/16 19:03 Last Admin: 07/24/16 19:16 Dose: 500 mg Budesonide (Pulmicort) Confirm Administered Dose 0.5 mg .ROUTE .STK-MED ONE Stop: 07/25/16 20:23 Last Admin: 07/25/16 21:03 Dose: 0.5 mg Ceftriaxone Sodium (Rocephin) 1 gm IVPUSH ONETIME ONE Stop: 07/24/16 19:03 Last Admin: 07/24/16 19:16 Dose: 1 gm Dexamethasone (Dexamethasone) Confirm Administered Dose 8 mg .ROUTE .STK-MED ONE Stop: 07/25/16 20:23 Last Admin: 07/25/16 21:04 Dose: 8 mg Sodium Chloride (Normal Saline) 1,000 mls @ 1,000 mls/hr IV .BOLUS RANDA Last Admin: 07/24/16 19:00 Dose: 1,000 mls/hr Sodium Chloride (Normal Saline) 1,000 mls @ 125 mls/hr IV ASDIRECTED [facility] Last Admin: 07/25/16 14:06 Dose: 125 mls/hr Azithromycin 500 mg/ Sodium (Chloride) 250 mls @ 250 mls/hr IV Q24H [facility] Last Admin: 07/27/16 10:01 Dose: 250 mls/hr Levofloxacin/Dextrose 250 mg/ (Premix) 50 mls @ 50 mls/hr IV Q24H [facility] Lorazepam (Ativan) Confirm Administered Dose 1 mg .ROUTE .STK-MED ONE Stop: 07/25/16 20:23 Last Admin: 07/25/16 21:03 Dose: 1 mg Methylprednisolone Sodium Succinate (Solu-Medrol) 125 mg IVPUSH ONETIME ONE Stop: 07/26/16 09:01 Last Admin: 07/26/16 09:20 Dose: 125 mg Oxycodone HCl (Oxycodone) 5 mg PO Q4H PRN PRN Reason: Pain (moderate 4-6) Last Admin: 07/25/16 05:00 Dose: 5 mg - Exam Quality Assessment: supplemental oxygen General: alert, oriented, cooperative HEENT: Pupils equal, Pupils reactive Neck: supple Lungs: Wheezing (END EXPIRATORY) Cardiovascular: Regular Rate, Regular Rhythm Abdomen: bowel sounds present, soft, no tenderness, no distension Back Exam: paraspinal tenderness Extremities: no edema, normal pulses, no tenderness/swelling Skin: warm, dry, intact Neurological: no new focal deficit Psy/Mental Status: alert, normal affect, normal mood - Problem List Review Problem List Initiated/Reviewed/Updated: Yes - My Orders Last 24 Hours: My Active Orders 07/27/16 15:42 LORazepam [Ativan] 1 mg PO Q8H PRN 07/28/16 09:00 Levofloxacin/Dextrose 5%-Water [Levaquin in D5W 500 MG/100 ML] 500 mg Premix Bag 1 bag IV Q24H 07/28/16 10:00 Levofloxacin/Dextrose 5%-Water [Levaquin in D5W 250 MG/50 ML] 250 mg Premix Bag 1 bag IV Q24H 07/28/16 13:00 Albuterol/Ipratropium [DuoNeb 3.0-0.5 MG/3 ML] 3 ml NEB Q4HRRT - Assessment Assessment:: GRADUAL IMPROVEMENT / CONTINUE ROCEPHIN AND LEVAQUIN / CONTINUE NEB TREATMENTS AND O2 TO MAINTAIN SAT > 92% / AMBULATE / CONTINUE SOLUMEDROL / ATIVAN QHS FOR ANXIETY / REEVALUATE TOMORROW TO POSSIBLE DISCHARGE - Plan Plan:: Will continue with azithromycin and rocephin. His lungs actually sound a bit worse to me today than yesterday, will repeat CXR and consider chest CT depending on x-ray results. Will repeat CBC and BMP today. Will administer solumedrol 125 mg IV today given the wheezing and will also schedule his duonebs q4 hours instead of having them PRN. He uses symbicort at home occasionally and notes it really helps. We do not have that on formulary here and so will substitute with Advair 250/50 1 puff PO BID. He is in agreement with this plan of care.
[2016-07-28] MEDS: guaiFENesin/Dextromethorphan 100-10 MG/5 ML Soln 5 ML Cup PO PRN ×2 (14:50→19:24)
[2016-07-28] MEDS: Sodium Chloride 0.9% 5 ML Syringe FLUSH PRN (19:26)
[2016-07-29] MEDS: Albuterol/Ipratropium 3.0-0.5 MG/3 ML Neb Soln NEB SCH ×3 (01:32→08:43)
[2016-07-29] MEDS: Acetaminophen/oxyCODONE 325-5 MG Tab PO PRN ×2 (01:37→05:49)
[2016-07-29 07:27] VITALS: BP 138/82
[2016-07-29] MEDS: Nicotine 14 MG/24 Hr Patch TRDERM SCH (08:43)
[2016-07-29] MEDS: cefTRIAXone 1 GM Vial IV SCH (08:43)
[2016-07-29] MEDS: Fluticasone/Salmeterol 250-50 MCG Inhalation Powder 14/Diskus INH SCH (08:43)
[2016-07-29] MEDS: Levofloxacin/Dextrose 5%-Water 500 MG in Premix Bag 1 BAG IV SCH (08:44)
[2016-07-29] MEDS: oxyCODONE ER 10 MG TAB.ER PO SCH (09:40)
--- NOTE | 2016-07-29 11:15 | PCM.DCSUM1 ---
Discharge Summary - Hospital Course Free Text/Narrative:: Patient was admitted 5 days ago with pneumonia. He was initially treated with Rocephin and Azithromycin but Azithromycin was stopped and Levaquin added after a sputum culture resulted gram positive cocci. Patient has improved dramatically and wants to go home now. He is now able to ambulate without dropping his O2 sats on RA. Afebrile. WBC 7.6 today. We discussed the home treatments he needs to continue and his follow up with PCP. Pt discharged in stable condition. - Discharge Data Discharge Date: 07/29/16 Discharge Disposition: Home, Self-Care 01 Condition: Good - Patient Summary/Data Consults: Consultations 07/25/16 09:43 Respiratory Care Assess and Treatment [CONS] Routine - Patient Instructions Diet: Regular Diet as Tolerated Activity: As Tolerated Driving: May Drive Today Showering/Bathing: May Shower Notify Provider of: Fever - Discharge Plan Prescriptions/Med Rec: Albuterol/Ipratropium [DuoNeb 3.0-0.5 MG/3 ML] 3 ml NEB Q4HRRT #30 neb Dextromethorphan/guaiFENesin [Robitussin DM] 10 ml PO BID #14 cup Levofloxacin [Levaquin] 750 mg PO DAILY #10 tablet Nicotine [Habitrol] 14 mg TRDERM DAILY 7 Days Home Medications: Home Meds Meloxicam 15 mg PO DAILY 07/24/16 [History] oxyCODONE ER [OxyCONTIN] 40 mg PO BID 07/24/16 [History] oxyCODONE HCl/Acetaminophen [Percocet 10-325 mg Tablet] 1 tab PO Q4HR PRN [History] Budesonide/Formoterol Fumarate [Symbicort 160-4.5 Mcg Inhaler] 1 puff IH BID [History] Albuterol/Ipratropium [DuoNeb 3.0-0.5 MG/3 ML] 3 ml NEB Q4HRRT #30 neb 07/29/16 [Rx] Dextromethorphan/guaiFENesin [Robitussin DM] 10 ml PO BID #14 cup 07/29/16 [Rx] Levofloxacin [Levaquin] 750 mg PO DAILY #10 tablet 07/29/16 [Rx] Nicotine [Habitrol] 14 mg TRDERM DAILY 7 Days 07/29/16 [Rx] Forms: ED Department Discharge Referrals: Hanh Leonard MD [Primary Care Provider] - - Discharge Summary/Plan Comment DC Time >30 min.: No - Patient Data Vitals - Most Recent: Last Vital Signs Temp 97.6 F 07/29/16 07:00 Pulse 75 07/29/16 07:00 Resp 16 07/29/16 07:00 BP 138/82 07/29/16 07:00 Pulse Ox 96 07/29/16 07:00 Weight - Most Recent: 201 lb 4.8 oz I&O - Last 24 hours: Intake & Output 07/28/16 07/29/16 07/29/16 22:59 06:59 14:59 Intake Total 940 275 Balance 940 275 Lab Results - Last 24 hrs: Laboratory Results - last 24 hr 07/29/16 Range/Units 10:05 WBC 7.6 (5.0-10.0) 10^3/uL RBC 4.23 L (4.50-6.00) 10^6/uL Hgb 13.9 (13.0-17.0) g/dL Hct 41.4 (40.0-52.0) % MCV 98.0 H (82.0-92.0) fL MCH 33.0 H (27.0-31.0) pg MCHC 33.7 (32.0-36.0) g/dL RDW 12.5 (11.5-14.5) % Plt Count 302 H (150-300) 10^3/uL MPV 6.6 L (7.4-10.4) fL Neut % (Auto) 74.8 H (50.0-70.0) % Lymph % (Auto) 20.5 (20.0-40.0) % [place] % (Auto) 3.8 (2.0-8.0) % Eos % (Auto) 0.9 L (1.0-3.0) % Baso % (Auto) 0.0 (0.0-1.0) % Neut # (Auto) 5.6 (2.5-7.0) 10^3/uL Lymph # (Auto) 1.6 (1.0-4.0) 10^3/uL [place] # (Auto) 0.3 (0.1-0.8) 10^3/uL Eos # (Auto) 0.1 (0.1-0.3) 10^3/uL Baso # (Auto) 0.0 (0.0-0.1) 10^3/uL [place] Results - Last 24 hrs: Microbiology 07/24/16 22:30 Gram Stain - Final Sputum - Expectorated Sputum Culture - Final YEAST Med Orders - Current: Current Medications Acetaminophen (Tylenol) 650 mg PO Q4H PRN PRN Reason: Pain (Mild 1-3)/fever Last Admin: 07/25/16 00:21 Dose: 650 mg Albuterol/Ipratropium (Duoneb 3.0-0.5 Mg/3 Ml) 3 ml NEB Q4HRRT [facility] Last Admin: 07/29/16 08:43 Dose: 3 ml Ceftriaxone Sodium (Rocephin) 1 gm IV Q24H [facility] Last Admin: 07/29/16 08:43 Dose: 1 gm Guaifenesin/Phenylephrine HCl (Robitussin Dm) 10 ml PO Q4H PRN PRN Reason: Cough Last Admin: 07/28/16 19:24 Dose: 10 ml Levofloxacin/Dextrose 500 mg/ (Premix) 100 mls @ 100 mls/hr IV Q24H [facility] Last Admin: 07/29/16 08:44 Dose: 100 mls/hr Levofloxacin/Dextrose 250 mg/ (Premix) 50 mls @ 50 mls/hr IV Q24H [facility] Last Admin: 07/28/16 11:23 Dose: 50 mls/hr Lorazepam (Ativan) 1 mg PO Q8H PRN PRN Reason: Anxiety Last Admin: 07/28/16 08:42 Dose: 1 mg Magnesium Hydroxide (Milk Of Magnesia) 30 ml PO DAILY PRN PRN Reason: Congestion Nicotine (Habitrol) 14 mg TRDERM DAILY [facility] Last Admin: 07/29/16 08:43 Dose: 14 mg Oxycodone HCl (Oxycontin) 40 mg PO BID [facility] Last Admin: 07/29/16 09:40 Dose: 40 mg Oxycodone/Acetaminophen (Percocet 325-5 Mg) 2 tab PO Q4H PRN PRN Reason: Pain Last Admin: 07/29/16 05:49 Dose: 2 tab Fluticasone/Salmeterol (Advair Diskus 250-50) 1 puff INH BID [facility] Last Admin: 07/29/16 08:43 Dose: 1 puff Sodium Chloride (Syrex Flush) 5 ml FLUSH Q8HR PRN PRN Reason: Keep Vein Open Last Admin: 07/28/16 19:26 Dose: 5 ml Discontinued Medications Acetaminophen (Tylenol Extra Strength) 1,000 mg PO ONETIME ONE Stop: 07/24/16 19:04 Last Admin: 07/24/16 19:16 Dose: 1,000 mg Albuterol/Ipratropium (Duoneb 3.0-0.5 Mg/3 Ml) 3 ml NEB ONETIME ONE Stop: 07/24/16 19:29 Last Admin: 07/24/16 19:39 Dose: 3 ml Albuterol/Ipratropium (Duoneb 3.0-0.5 Mg/3 Ml) Confirm Administered Dose 3 ml .ROUTE .STK-MED ONE Stop: 07/24/16 19:34 Last Admin: 07/25/16 01:11 Dose: Not Given Albuterol/Ipratropium (Duoneb 3.0-0.5 Mg/3 Ml) 3 ml NEB Q4H PRN PRN Reason: Shortness Of Breath/wheezing Last Admin: 07/25/16 19:48 Dose: 3 ml Albuterol/Ipratropium (Duoneb 3.0-0.5 Mg/3 Ml) 3 ml NEB Q4HRRT [facility] Last Admin: 07/28/16 09:26 Dose: 3 ml Azithromycin (Zithromax) 500 mg PO ONETIME ONE Stop: 07/24/16 19:03 Last Admin: 07/24/16 19:16 Dose: 500 mg Budesonide (Pulmicort) Confirm Administered Dose 0.5 mg .ROUTE .STK-MED ONE Stop: 07/25/16 20:23 Last Admin: 07/25/16 21:03 Dose: 0.5 mg Ceftriaxone Sodium (Rocephin) 1 gm IVPUSH ONETIME ONE Stop: 07/24/16 19:03 Last Admin: 07/24/16 19:16 Dose: 1 gm Dexamethasone (Dexamethasone) Confirm Administered Dose 8 mg .ROUTE .STK-MED ONE Stop: 07/25/16 20:23 Last Admin: 07/25/16 21:04 Dose: 8 mg Sodium Chloride (Normal Saline) 1,000 mls @ 1,000 mls/hr IV .BOLUS RANDA Last Admin: 07/24/16 19:00 Dose: 1,000 mls/hr Sodium Chloride (Normal Saline) 1,000 mls @ 125 mls/hr IV ASDIRECTED [facility] Last Admin: 07/25/16 14:06 Dose: 125 mls/hr Azithromycin 500 mg/ Sodium (Chloride) 250 mls @ 250 mls/hr IV Q24H [facility] Last Admin: 07/27/16 10:01 Dose: 250 mls/hr Levofloxacin/Dextrose 250 mg/ (Premix) 50 mls @ 50 mls/hr IV Q24H [facility] Lorazepam (Ativan) Confirm Administered Dose 1 mg .ROUTE .STK-MED ONE Stop: 07/25/16 20:23 Last Admin: 07/25/16 21:03 Dose: 1 mg Methylprednisolone Sodium Succinate (Solu-Medrol) 125 mg IVPUSH ONETIME ONE Stop: 07/26/16 09:01 Last Admin: 07/26/16 09:20 Dose: 125 mg Oxycodone HCl (Oxycodone) 5 mg PO Q4H PRN PRN Reason: Pain (moderate 4-6) Last Admin: 07/25/16 05:00 Dose: 5 mg *Q Meaningful Use (DIS) - VTE *Q VTE Criteria *Q: - Stroke *Q Stroke Criteria *Q: - AMI *Q AMI Criteria *Q:
--- NOTE | 2016-07-29 11:22 | PCM.PN ---
- General Info Date of Service: 07/29/16 Functional Status: Reports: pain controlled, tolerating diet, ambulating. Denies: new symptoms - Review of Systems General: Denies: Fever, Weakness, Malaise, Chills HEENT: Reports: no symptoms Pulmonary: Denies: shortness of breath Cardiovascular: Denies: Chest Pain, Lightheadedness Gastrointestinal: Denies: Abdominal pain, Vomiting Genitourinary: Reports: no symptoms Musculoskeletal: Reports: no symptoms Skin: Denies: cyanosis, jaundice, mottled, pallor, diaphoresis Neurological: Denies: Confusion, Syncope, Difficulty Walking - Patient Data Vitals - most recent: Last Vital Signs Temp 97.6 F 07/29/16 07:00 Pulse 75 07/29/16 07:00 Resp 16 07/29/16 07:00 BP 138/82 07/29/16 07:00 Pulse Ox 96 07/29/16 07:00 Weight - most recent: 201 lb 4.8 oz I&O - last 24 hours: Intake & Output 07/28/16 07/29/16 07/29/16 22:59 06:59 14:59 Intake Total 940 275 Balance 940 275 Lab Results last 24 hrs: Laboratory Results - last 24 hr 07/29/16 Range/Units 10:05 WBC 7.6 (5.0-10.0) 10^3/uL RBC 4.23 L (4.50-6.00) 10^6/uL Hgb 13.9 (13.0-17.0) g/dL Hct 41.4 (40.0-52.0) % MCV 98.0 H (82.0-92.0) fL MCH 33.0 H (27.0-31.0) pg MCHC 33.7 (32.0-36.0) g/dL RDW 12.5 (11.5-14.5) % Plt Count 302 H (150-300) 10^3/uL MPV 6.6 L (7.4-10.4) fL Neut % (Auto) 74.8 H (50.0-70.0) % Lymph % (Auto) 20.5 (20.0-40.0) % Riley % (Auto) 3.8 (2.0-8.0) % Eos % (Auto) 0.9 L (1.0-3.0) % Baso % (Auto) 0.0 (0.0-1.0) % Neut # (Auto) 5.6 (2.5-7.0) 10^3/uL Lymph # (Auto) 1.6 (1.0-4.0) 10^3/uL Riley # (Auto) 0.3 (0.1-0.8) 10^3/uL Eos # (Auto) 0.1 (0.1-0.3) 10^3/uL Baso # (Auto) 0.0 (0.0-0.1) 10^3/uL Darwin Results last 24 hrs: Microbiology 07/24/16 22:30 Gram Stain - Final Sputum - Expectorated Sputum Culture - Final YEAST Med Orders - Current: Current Medications Acetaminophen (Tylenol) 650 mg PO Q4H PRN PRN Reason: Pain (Mild 1-3)/fever Last Admin: 07/25/16 00:21 Dose: 650 mg Albuterol/Ipratropium (Duoneb 3.0-0.5 Mg/3 Ml) 3 ml NEB Q4HRRT [facility] Last Admin: 07/29/16 08:43 Dose: 3 ml Ceftriaxone Sodium (Rocephin) 1 gm IV Q24H [facility] Last Admin: 07/29/16 08:43 Dose: 1 gm Guaifenesin/Phenylephrine HCl (Robitussin Dm) 10 ml PO Q4H PRN PRN Reason: Cough Last Admin: 07/28/16 19:24 Dose: 10 ml Levofloxacin/Dextrose 500 mg/ (Premix) 100 mls @ 100 mls/hr IV Q24H [facility] Last Admin: 07/29/16 08:44 Dose: 100 mls/hr Levofloxacin/Dextrose 250 mg/ (Premix) 50 mls @ 50 mls/hr IV Q24H [facility] Last Admin: 07/28/16 11:23 Dose: 50 mls/hr Lorazepam (Ativan) 1 mg PO Q8H PRN PRN Reason: Anxiety Last Admin: 07/28/16 08:42 Dose: 1 mg Magnesium Hydroxide (Milk Of Magnesia) 30 ml PO DAILY PRN PRN Reason: Congestion Nicotine (Habitrol) 14 mg TRDERM DAILY [facility] Last Admin: 07/29/16 08:43 Dose: 14 mg Oxycodone HCl (Oxycontin) 40 mg PO BID [facility] Last Admin: 07/29/16 09:40 Dose: 40 mg Oxycodone/Acetaminophen (Percocet 325-5 Mg) 2 tab PO Q4H PRN PRN Reason: Pain Last Admin: 07/29/16 05:49 Dose: 2 tab Fluticasone/Salmeterol (Advair Diskus 250-50) 1 puff INH BID [facility] Last Admin: 07/29/16 08:43 Dose: 1 puff Sodium Chloride (Syrex Flush) 5 ml FLUSH Q8HR PRN PRN Reason: Keep Vein Open Last Admin: 07/28/16 19:26 Dose: 5 ml Discontinued Medications Acetaminophen (Tylenol Extra Strength) 1,000 mg PO ONETIME ONE Stop: 07/24/16 19:04 Last Admin: 07/24/16 19:16 Dose: 1,000 mg Albuterol/Ipratropium (Duoneb 3.0-0.5 Mg/3 Ml) 3 ml NEB ONETIME ONE Stop: 07/24/16 19:29 Last Admin: 07/24/16 19:39 Dose: 3 ml Albuterol/Ipratropium (Duoneb 3.0-0.5 Mg/3 Ml) Confirm Administered Dose 3 ml .ROUTE .STK-MED ONE Stop: 07/24/16 19:34 Last Admin: 07/25/16 01:11 Dose: Not Given Albuterol/Ipratropium (Duoneb 3.0-0.5 Mg/3 Ml) 3 ml NEB Q4H PRN PRN Reason: Shortness Of Breath/wheezing Last Admin: 07/25/16 19:48 Dose: 3 ml Albuterol/Ipratropium (Duoneb 3.0-0.5 Mg/3 Ml) 3 ml NEB Q4HRRT [facility] Last Admin: 07/28/16 09:26 Dose: 3 ml Azithromycin (Zithromax) 500 mg PO ONETIME ONE Stop: 07/24/16 19:03 Last Admin: 07/24/16 19:16 Dose: 500 mg Budesonide (Pulmicort) Confirm Administered Dose 0.5 mg .ROUTE .STK-MED ONE Stop: 07/25/16 20:23 Last Admin: 07/25/16 21:03 Dose: 0.5 mg Ceftriaxone Sodium (Rocephin) 1 gm IVPUSH ONETIME ONE Stop: 07/24/16 19:03 Last Admin: 07/24/16 19:16 Dose: 1 gm Dexamethasone (Dexamethasone) Confirm Administered Dose 8 mg .ROUTE .STK-MED ONE Stop: 07/25/16 20:23 Last Admin: 07/25/16 21:04 Dose: 8 mg Sodium Chloride (Normal Saline) 1,000 mls @ 1,000 mls/hr IV .BOLUS RANDA Last Admin: 07/24/16 19:00 Dose: 1,000 mls/hr Sodium Chloride (Normal Saline) 1,000 mls @ 125 mls/hr IV ASDIRECTED RAN[facility] Last Admin: 07/25/16 14:06 Dose: 125 mls/hr Azithromycin 500 mg/ Sodium (Chloride) 250 mls @ 250 mls/hr IV Q24H [facility] Last Admin: 07/27/16 10:01 Dose: 250 mls/hr Levofloxacin/Dextrose 250 mg/ (Premix) 50 mls @ 50 mls/hr IV Q24H [facility] Lorazepam (Ativan) Confirm Administered Dose 1 mg .ROUTE .STK-MED ONE Stop: 07/25/16 20:23 Last Admin: 07/25/16 21:03 Dose: 1 mg Methylprednisolone Sodium Succinate (Solu-Medrol) 125 mg IVPUSH ONETIME ONE Stop: 07/26/16 09:01 Last Admin: 07/26/16 09:20 Dose: 125 mg Oxycodone HCl (Oxycodone) 5 mg PO Q4H PRN PRN Reason: Pain (moderate 4-6) Last Admin: 07/25/16 05:00 Dose: 5 mg - Exam Quality Assessment: No: supplemental oxygen General: alert, oriented, cooperative, no acute distress HEENT: Pupils equal, EOMI Lungs: Crackles (still present in bilat lung bases). No: Decreased breath sounds, Wheezing Cardiovascular: Regular Rate, Regular Rhythm Abdomen: no distension Skin: warm, dry, intact Neurological: no new focal deficit Psy/Mental Status: alert, normal affect, normal mood - Problem List Review Problem List Initiated/Reviewed/Updated: Yes - My Orders Last 24 Hours: My Active Orders 07/29/16 10:55 Ready for Discharge [RC] PER UNIT ROUTINE - Assessment Assessment:: GRADUAL IMPROVEMENT / CONTINUE ROCEPHIN AND LEVAQUIN / CONTINUE NEB TREATMENTS AND O2 TO MAINTAIN SAT > 92% / AMBULATE / CONTINUE SOLUMEDROL / ATIVAN QHS FOR ANXIETY / REEVALUATE TOMORROW TO POSSIBLE DISCHARGE - Plan Plan:: Will continue with azithromycin and rocephin. His lungs actually sound a bit worse to me today than yesterday, will repeat CXR and consider chest CT depending on x-ray results. Will repeat CBC and BMP today. Will administer solumedrol 125 mg IV today given the wheezing and will also schedule his duonebs q4 hours instead of having them PRN. He uses symbicort at home occasionally and notes it really helps. We do not have that on formulary here and so will substitute with Advair 250/50 1 puff PO BID. He is in agreement with this plan of care.
== END 2016-07-29 11:45 | disposition home or self-care (01) | DRG 195 ==
LOC: KA.ED 18:08 → KA.MS 19:41
PROVIDERS: ADMIT Physician Assistant Surgical; ATTEND Internal Medicine
DX: J18.1 Lobar pneumonia, unspecified organism (principal); R09.02 Hypoxemia; R50.9 Fever, unspecified; Z79.899 Other long term (current) drug therapy
CPT/HCPCS: 36415; 71020; 80048; 80053; 81001; 83036; 83605; 84484; 85025; 87040; 87070; 87077; 87205; 87804; 94640; 96361; 96374; 99284; A9270-GY; J0456; J0696; J1100; J1956; J2930; J7030; J7050

== ENCOUNTER 2019-07-09 08:34 | Day surgery (SDC) | payer OTHER ==
[~2019-07-09 08:34] MED LIST: Bupivacaine 0.5%/EPINEPHrine 1:200,000 30 ML SDV ONE; Ketamine 200 MG/20 ML MDV ONE; Midazolam 1 MG/ML 2 ML SDV ONE; Propofol 200 MG/20 ML SDV ONE; ceFAZolin 1 GM Vial ONE; fentaNYL 100 MCG/2 ML SDV ONE
[2019-07-09] MEDS ORDERED: ceFAZolin 1 GM Vial IV ONE (08:35)
[2019-07-09] MEDS ORDERED: Propofol 200 MG/20 ML SDV IV ONE (08:35)
[2019-07-09] MEDS ORDERED: Midazolam 1 MG/ML 2 ML SDV IV ONE (08:35)
[2019-07-09] MEDS ORDERED: Ketamine 200 MG/20 ML MDV IV ONE (08:35)
[2019-07-09] MEDS ORDERED: fentaNYL 100 MCG/2 ML SDV IV ONE (08:35)
[2019-07-09] MEDS ORDERED: Sodium Chloride 0.9% 10 ML Syringe FLUSH PRN (09:00)
[2019-07-09] MEDS ORDERED: Lactated Ringers 1,000 ML IV SCH (09:00)
[2019-07-09] MEDS ORDERED: Bacitracin/Neomycin/Polymyxin B Oint 0.9 GM U/D Packet ONE (10:34)
--- NOTE | 2019-07-09 10:50 | PCM.PN ---
- General Info Date of Service: 07/09/19 - Review of Systems Systems Review Comment:: 63-year-old male with recently discovered umbilical hernia here for repair. He denies any previous surgery in this area. He has some mild discomfort in the hernia but there is been no GI effects from it. The patient's abdomen is examined and the hernia is identified and the site confirmed with the patient. I have recommended surgical repair which the patient agrees to. We discussed the operative procedure as well as nedra-and postoperative expectations and restrictions. I also discussed the risks and possible complications. These included but were not limited to bleeding, infection, and recurrence. He agrees to proceed. - Patient Data Vitals - Most Recent: Last Vital Signs Temp 96.4 F L 07/09/19 08:38 Pulse 87 07/09/19 08:38 Resp 18 07/09/19 08:38 BP 154/67 H 07/09/19 08:38 Pulse Ox 95 07/09/19 08:38 Weight - Most Recent: 104.326 kg Med Orders - Current: Current Medications Lactated Ringer's (Ringers, Lactated) 1,000 mls @ 50 mls/hr IV ASDIRECTED [facility] Last Admin: 07/09/19 09:22 Dose: 50 mls/hr Sodium Chloride (Saline Flush) 10 ml FLUSH Q8HR PRN PRN Reason: keep vein open Discontinued Medications Bupivacaine HCl/Epinephrine Bitart (Marcaine 0.5%/Epinephrine 1:200,000) Confirm Administered Dose 30 ml .ROUTE .STK-MED ONE Stop: 07/09/19 08:20 Cefazolin Sodium (Ancef) Confirm Administered Dose 1 gm .ROUTE .STK-MED ONE Stop: 07/09/19 08:20 Cefazolin Sodium (Ancef) Confirm Administered Dose 2 gm .ROUTE .STK-MED ONE Stop: 07/09/19 08:27 Fentanyl (Sublimaze) Confirm Administered Dose 100 mcg .ROUTE .STK-MED ONE Stop: 07/09/19 08:27 Ketamine HCl (Ketalar) Confirm Administered Dose 200 mg .ROUTE .STK-MED ONE Stop: 07/09/19 08:28 Midazolam HCl (Versed 1 Mg/Ml) Confirm Administered Dose 4 mg .ROUTE .STK-MED ONE Stop: 07/09/19 08:27 Propofol (Diprivan 20 Ml) Confirm Administered Dose 800 mg .ROUTE .STK-MED ONE Stop: 07/09/19 08:28 Sepsis Event Note - Focused Exam Vital Signs: Vital Signs Temp Pulse Resp BP Pulse Ox 07/09/19 08:38 96.4 F L 87 18 154/67 H 95 Date Exam was Performed: 07/09/19 Time Exam was Performed: 10:48 - Problem List Review Problem List Initiated/Reviewed/Updated: Yes - My Orders Last 24 Hours: My Active Orders 07/08/19 14:39 Resuscitation Status Routine 07/09/19 09:00 Peripheral IV Care [RC] . DIRECTED Vital Signs [RC] PER UNIT ROUTINE Lactated Ringers [Ringers, Lactated] 1,000 ml IV ASDIRECTED Sodium Chloride 0.9% [Saline Flush] 10 ml FLUSH Q8HR PRN Peripheral IV Insertion Adult [OM.PC] Routine 07/09/19 09:30 Antiembolic Devices [RC] PER UNIT ROUTINE Patient to Empty Bladder [RC] ASDIRECTED Sequential Compression Device [OM.PC] Routine 07/09/19 10:00 Verify Patient Consent Obtain [RC] ASDIRECTED 07/09/19 Breakfast Nothing Per Oral Diet [DIET] - Assessment Assessment:: Umbilical hernia - Plan Plan:: Umbilical hernia repair
[2019-07-09] MEDS ORDERED: Sodium Chloride 0.9% 20 ML SDV ONE (11:00)
[2019-07-09] MEDS ORDERED: Bupivacaine 0.5%/EPINEPHrine 1:200,000 30 ML SDV INFILT ONE (11:00)
[2019-07-09] MEDS ORDERED: ceFAZolin 1 GM Vial ONE (11:00)
--- NOTE | 2019-07-09 11:59 | PCM.OPNOTE ---
- General Post-Op/Procedure Note Date of Surgery/Procedure: 07/09/19 Operative Procedure(s): Umbilical hernia repair Findings: Moderate sized umbilical hernia containing preperitoneal fat Pre Op Diagnosis: Umbilical hernia Post-Op Diagnosis: Same Anesthesia Technique: Local, MAC Primary Surgeon: Bhaskar Montana Pathology: Hernia sac and contents EBL in mLs: 10 Complications: None Condition: Good
[2019-07-09 14:24] VITALS: BP 126/65; PULSE 93
--- NOTE | 2019-07-09 18:46 | OR ---
DATE OF SURGERY: 07/09/2019 SURGEON: Bhaskar Montana MD PREOPERATIVE DIAGNOSIS: Umbilical hernia. POSTOPERATIVE DIAGNOSIS: Umbilical hernia. OPERATION PERFORMED: Umbilical herniorrhaphy. INDICATIONS FOR SURGERY: This 63-year-old male has recently noticed a bulge at the level of his umbilicus. This is causing him discomfort and he comes for elective repair. FINDINGS: The patient has a moderate-sized umbilical hernia. The defect is approximately 3 cm in size. There was preperitoneal fat protruding through the defect into the hernia sac. The surrounding fascia appears of satisfactory quality. DESCRIPTION OF PROCEDURE: The patient was taken to the operating room. He was given intravenous sedation and his abdomen was sterilely prepped with Betadine and draped. The periumbilical region was infiltrated with Xylocaine and Marcaine mix. A curvilinear incision was made just above the umbilicus. Dissection proceeded down onto the hernia sac which was isolated from the surrounding subcutaneous tissue. The sac was then dissected off the skin of the umbilicus, which was preserved uninjured. The sac was identified down to the level of the fascia circumferentially. The fatty tissue overlying the fascia is cleared circumferentially to provide good exposure of the fascial edges. The hernia sac is inscribed at the level of the fascia and the hernia contents are clamped and then amputated above these clamps, removed and submitted for pathology. Vascular pedicles were controlled with 2-0 Vicryl ties. With the fascial edges clearly defined, the fascial defect is closed in a transverse orientation with interrupted #1 Prolene using a Smead-Ruiz suturing technique. This completely closed the defect with a solid repair. Careful examination showed no sign of any complication. Additional local anesthesia is administered and the wound was irrigated. The skin of the umbilicus was tacked down to the underlying fascia with 4-0 Vicryl. Subcutaneous tissues approximated with interrupted 4-0 Vicryl and the skin is closed with a running 4-0 Vicryl subcuticular stitch. Benzoin and Steri-Strips were applied. Antibiotic ointment was placed and a sterile dressing was used to cover the incision. The patient was then taken from the operating room in satisfactory condition. ESTIMATED BLOOD LOSS: 10 mL. COMPLICATIONS: None. PROGNOSIS: Good. /[id number]/MODL
== END 2019-07-09 13:40 | disposition home or self-care (01) ==
LOC: KA.SDS 08:34
PROVIDERS: ATTEND Surgery
DX: K42.9 Umbilical hernia without obstruction or gangrene (principal); G62.9 Polyneuropathy, unspecified; J44.9 Chronic obstructive pulmonary disease, unspecified; Z88.8 Allergy status to other drugs, medicaments and biological substances; Z79.899 Other long term (current) drug therapy; Z87.891 Personal history of nicotine dependence
CPT/HCPCS: 00750; 49585; J0690; J2250; J2704; J3010; J3490; J7120; 88302

== ENCOUNTER 2020-10-26 15:50 | Emergency (ER) | payer MEDICARE, OTHER ==
[2020-10-26] MEDS ORDERED: Sodium Chloride 0.9% 1,000 ML IV ONE (16:12)
[2020-10-26] MEDS: Sodium Chloride 0.9% 10 ML Syringe FLUSH PRN ×4 (16:19→18:30)
--- NOTE | 2020-10-26 16:45 | EDM.PDOC ---
ED HPI GENERAL MEDICAL PROBLEM - General Chief Complaint: General Stated Complaint: SWOLLEN LEGS Time Seen by Provider: 10/26/20 16:23 Source of Information: Reports: Patient - History of Present Illness INITIAL COMMENTS - FREE TEXT/NARRATIVE: Dre, 64-year-old male, presents by private vehicle after he had contacted his clinic stating he was weak and had leg swelling, unable to get out of bed by himself. He stated he did not need an ambulance and would have a friend transport him in for evaluation. History is noted for elevated liver enzymes which he saw gastroenterology at [facility] in [place] for work-up and was scheduled to be going back in the upcoming month. Records are not available to me for review. He states he has had some intermittent breathing issues but denies true chest pain. He is unaware of his jaundice as he states he seldom he looks in the mirror. Leg swelling, weakness with some bruising tendencies and occasional epistaxis which he states has been something intermittently lifelong has been existing this past month. The friend that transports him states they are on a daily communication on the phone, but he has not physically seen Dre for 2 weeks and was not jaundiced at that time. Onset: Gradual Duration: Day(s): Location: Reports: Lower Extremity, Left, Lower Extremity, Right - Related Data Allergies Allergy/AdvReac Type Severity Reaction Status Date / Time prednisone Allergy Other Verified 10/26/20 17:09 Home Meds: Home Meds oxyCODONE ER [OxyCONTIN] 40 mg PO Q12H 07/24/16 [History] oxyCODONE HCl/Acetaminophen [Percocet 10-325 mg Tablet] 1 tab PO Q4HR PRN 07/24/16 [History] Albuterol Sulfate [Proair Hfa] 1 - 2 puff IH Q4H PRN 07/08/19 [History] Budesonide/Formoterol Fumarate [Symbicort 80-4.5 MCG] 2 puff PO BID 07/08/19 [History] Pregabalin 75 mg PO BID 07/08/19 [History] Aspirin [Halfprin] 81 mg PO DAILY 07/09/19 [History] Past Medical History HEENT History: Reports: Impaired Vision Other HEENT History: glasses Cardiovascular History: Reports: High Cholesterol Respiratory History: Reports: Asthma, SOB Other Respiratory History: sesonal allergies Gastrointestinal History: Reports: Cirrhosis, Fatty Liver Musculoskeletal History: Reports: Arthritis, Back Pain, Chronic Other Musculoskeletal History: athritis finger. L knee surgery - tenden repair. back injury 2010 Neurological History: Reports: Neuropathy, Diabetic Psychiatric History: Reports: None Endocrine/Metabolic History: Reports: Diabetes, Type II Hematologic History: Reports: Anemia - Past Surgical History Head Surgeries/Procedures: Reports: None HEENT Surgical History: Reports: None Cardiovascular Surgical History: Reports: None Respiratory Surgical History: Reports: None GI Surgical History: Reports: None Neurological Surgical History: Reports: None Musculoskeletal Surgical History: Reports: Arthroscopic Knee, Hip Replacement Social & Family History - Family History Family Medical History: No Pertinent Family History - Tobacco Use Tobacco Use Status *Q: Former Tobacco User Used Tobacco, but Quit: Yes Month/Year Tobacco Last Used: quit 10 years ago - Caffeine Use Caffeine Use: Reports: None - Alcohol Use Days Per Week of Alcohol Use: 7 Number of Drinks Per Day: 2 Total Drinks Per Week: 14 - Recreational Drug Use Recreational Drug Use: No ED ROS GENERAL - Review of Systems Review Of Systems: Comprehensive ROS is negative, except as noted in HPI. ED EXAM, GENERAL - Physical Exam Exam: See Below Free Text/Narrative:: Alert, oriented, with extreme icterus as well as jaundice appearing skin. HEENT shows discoloration with pupils equal reactive light accommodating. EOM is grossly intact. [place] moist mucous membranes he has had epistaxis to which he is self packed his left naris with tissue and is controlled. Neck shows no JVD but I do find hepatojugular reflux with palpation over his liver. Thorax is somewhat diminished with no wheezes nor crackles noted. Mildly diminished more so at the bases again positioning as well as his inspiratory effort secondary of his fluid to the abdomen. Cardiac is distant S1-S2 there is a grade 1 systolic murmur. Abdomen is rotund firm mild tenderness in the hepatic region. I cannot truly distinguish liver margin as he is so firm and does not allow deep palpation. There is venous distention visible as well as superficial bruising to the abdomen bruising to the arms. Mild tenderness to the lateral left hip which she had replaced at some time but nothing of significance but is notable. He has extreme erythema to the lower extremities from the knee downward to the ankle and some on the dorsum of the foot. He states this is been slowly worsening as well. rectal are deferred. #1 Interpretation EKG Date: 10/26/20 Time: 16:45 Rhythm: NSR Rate (Beats/Min): 80 [place]: Normal P-Wave: Present ST-T: Elevated (No STEMI) QT: Normal Comparison: NA - No Prior EKG (None available in archives.) Course - Vital Signs Last Recorded V/S: Last Vital Signs Temp 97.4 F 10/26/20 15:58 Pulse 80 10/26/20 18:10 Resp 18 10/26/20 18:10 BP 130/64 10/26/20 18:10 Pulse Ox 96 10/26/20 18:10 - Orders/Labs/Meds Orders: Active Orders 24 hr Category Date Time Status EKG Documentation Completion [RC] ASDIRECTED Care 10/26/20 16:36 Active Insert Whyte Catheter [Insert Urinary Catheter] [OM.PC] Care 10/26/20 16:45 Ordered Q24H Peripheral IV Care [RC] . DIRECTED Care 10/26/20 16:04 Active Urinary Catheter Assessment [RC] ASDIRECTED Care 10/26/20 16:37 Active Albumin 25% [Flexbumin 25%] 25 gm Med 10/26/20 17:45 Active Premix Bag 1 bag IV ONETIME Sodium Chloride 0.9% [Saline Flush] Med 10/26/20 16:04 Active 10 ml FLUSH Q8HR PRN Sodium Chloride 3% 500 ml Med 10/26/20 17:15 Active IV ASDIRECTED Peripheral IV Insertion Adult [OM.PC] Routine Oth 10/26/20 16:04 Ordered EKG 12 Lead [EK] Urgent Ther 10/26/20 16:36 Ordered Medication Orders Sodium Chloride (Sodium Chloride 3%) 500 mls @ 75 mls/hr IV ASDIRECTED [facility] Last Admin: 10/26/20 17:26 Dose: 75 mls/hr Documented by: ANGELICA Albumin Human 25 gm/ Premix 100 mls @ 50 mls/hr IV ONETIME ONE Stop: 10/26/20 19:44 Last Admin: 10/26/20 18:05 Dose: 50 mls/hr Documented by: ANGELICA Sodium Chloride (Sodium Chloride 0.9% 10 Ml Syringe) 10 ml FLUSH Q8HR PRN PRN Reason: keep vein open Last Admin: 10/26/20 18:16 Dose: 10 ml Documented by: Admin: 10/26/20 18:15 Dose: 10 ml Documented by: Admin: 10/26/20 16:19 Dose: 10 ml Documented by: RAVEN Labs: Laboratory Tests 10/26/20 10/26/20 10/26/20 Range/Units 16:11 16:11 16:11 WBC 9.76 (5.00-10.00) 10^3/uL RBC 2.88 L (4.50-6.00) 10^6/uL Hgb 11.3 L D (13.0-17.0) g/dL Hct 29.8 L (40.0-52.0) % MCV 103.5 H D (82.0-92.0) fL MCH 39.2 H (27.0-31.0) pg MCHC 37.9 H (32.0-36.0) g/dL RDW 14.0 (11.5-14.5) % Plt Count 113 L (150-400) 10^3/uL MPV 9.9 (7.4-10.4) fL Immature Gran % (Auto) 1.2 (0.0-5.0) % Neut % (Auto) 84.3 H (50.0-70.0) % Lymph % (Auto) 3.8 L (20.0-40.0) % [place] % (Auto) 9.9 H (2.0-8.0) % Eos % (Auto) 0.7 L (1.0-3.0) % Baso % (Auto) 0.1 (0.0-1.0) % Neut # (Auto) 8.22 H (2.50-7.00) 10^3/uL Lymph # (Auto) 0.37 L (1.00-4.00) 10^3/uL [place] # (Auto) 0.97 H (0.10-0.80) 10^3/uL Eos # (Auto) 0.07 L (0.10-0.30) 10^3/uL Baso # (Auto) 0.01 (0.00-0.10) 10^3/uL Immature Gran # (Auto) 0.12 (0.00-0.50) 10^3/uL Sodium 117 L* D (136-145) mmol/L Potassium 5.4 H (3.5-5.1) mmol/L Chloride 82 L* D (98-107) mmol/L Carbon Dioxide 23.5 (21.0-32.0) mmol/L Anion Gap 16.9 H (5-15) mmol/L BUN 90 H* D (7-18) mg/dL Creatinine 3.79 H D (0.51-1.17) mg/dL Est Cr Clr Drug Dosing 18.55 mL/min Estimated GFR (MDRD) 16 mL/min Glucose 112 (70-140) mg/dL Lactic Acid (0.4-2.0) mmol/L Calcium 8.2 L (8.7-10.3) mg/dL Total Bilirubin 33.1 H* (0.2-1.0) mg/dL AST 201 H (15-37) U/L ALT 93 H (14-63) U/L Alkaline Phosphatase 156 H (46-116) U/L Ammonia 14.0 (11.2-31.7) umol/L Creatine Kinase (26-276) U/L Troponin I High Sens 17.100 (0-76.000) pg/mL B-Natriuretic Peptide (0-100) pg/mL Total Protein 6.1 L (6.4-8.2) g/dL Albumin 1.96 L (3.40-5.00) g/dL Specimen Type Urine Color (YELLOW) Urine Appearance (CLEAR) Urine pH (5.0-9.0) Ur Specific [place] (1.005-1.030) Urine Protein (NEGATIVE) mg/dL Urine Glucose (UA) (NEGATIVE) mg/dL Urine Ketones (NEGATIVE) mg/dL Urine Occult Blood (NEGATIVE) Urine Nitrite (NEGATIVE) Urine Bilirubin (NEGATIVE) Urine Urobilinogen (0.2-1.0) E.U./dL Ur Leukocyte Esterase (NEGATIVE) U Hyaline Cast (Auto) Urine RBC (0-5) /HPF Urine WBC (0-5) /HPF Ur Epithelial Cells /LPF Urine Bacteria (NONE TO FEW) /HPF Granular Casts (Auto) 10/26/20 10/26/20 10/26/20 Range/Units 16:11 16:11 16:11 WBC (5.00-10.00) 10^3/uL RBC (4.50-6.00) 10^6/uL Hgb (13.0-17.0) g/dL Hct (40.0-52.0) % MCV (82.0-92.0) fL MCH (27.0-31.0) pg MCHC (32.0-36.0) g/dL RDW (11.5-14.5) % Plt Count (150-400) 10^3/uL MPV (7.4-10.4) fL Immature Gran % (Auto) (0.0-5.0) % Neut % (Auto) (50.0-70.0) % Lymph % (Auto) (20.0-40.0) % [place] % (Auto) (2.0-8.0) % Eos % (Auto) (1.0-3.0) % Baso % (Auto) (0.0-1.0) % Neut # (Auto) (2.50-7.00) 10^3/uL Lymph # (Auto) (1.00-4.00) 10^3/uL [place] # (Auto) (0.10-0.80) 10^3/uL Eos # (Auto) (0.10-0.30) 10^3/uL Baso # (Auto) (0.00-0.10) 10^3/uL Immature Gran # (Auto) (0.00-0.50) 10^3/uL Sodium (136-145) mmol/L Potassium (3.5-5.1) mmol/L Chloride (98-107) mmol/L Carbon Dioxide (21.0-32.0) mmol/L Anion Gap (5-15) mmol/L BUN (7-18) mg/dL Creatinine (0.51-1.17) mg/dL Est Cr Clr Drug Dosing mL/min Estimated GFR (MDRD) mL/min Glucose (70-140) mg/dL Lactic Acid 2.3 H (0.4-2.0) mmol/L Calcium (8.7-10.3) mg/dL Total Bilirubin (0.2-1.0) mg/dL AST (15-37) U/L ALT (14-63) U/L Alkaline Phosphatase (46-116) U/L Ammonia (11.2-31.7) umol/L Creatine Kinase 109 (26-276) U/L Troponin I High Sens (0-76.000) pg/mL B-Natriuretic Peptide 243 H (0-100) pg/mL Total Protein (6.4-8.2) g/dL Albumin (3.40-5.00) g/dL Specimen Type Urine Color (YELLOW) Urine Appearance (CLEAR) Urine pH (5.0-9.0) Ur Specific [place] (1.005-1.030) Urine Protein (NEGATIVE) mg/dL Urine Glucose (UA) (NEGATIVE) mg/dL Urine Ketones (NEGATIVE) mg/dL Urine Occult Blood (NEGATIVE) Urine Nitrite (NEGATIVE) Urine Bilirubin (NEGATIVE) Urine Urobilinogen (0.2-1.0) E.U./dL Ur Leukocyte Esterase (NEGATIVE) U Hyaline Cast (Auto) Urine RBC (0-5) /HPF Urine WBC (0-5) /HPF Ur Epithelial Cells /LPF Urine Bacteria (NONE TO FEW) /HPF Granular Casts (Auto) 10/26/20 Range/Units 16:55 WBC (5.00-10.00) 10^3/uL RBC (4.50-6.00) 10^6/uL Hgb (13.0-17.0) g/dL Hct (40.0-52.0) % MCV (82.0-92.0) fL MCH (27.0-31.0) pg MCHC (32.0-36.0) g/dL RDW (11.5-14.5) % Plt Count (150-400) 10^3/uL MPV (7.4-10.4) fL Immature Gran % (Auto) (0.0-5.0) % Neut % (Auto) (50.0-70.0) % Lymph % (Auto) (20.0-40.0) % [place] % (Auto) (2.0-8.0) % Eos % (Auto) (1.0-3.0) % Baso % (Auto) (0.0-1.0) % Neut # (Auto) (2.50-7.00) 10^3/uL Lymph # (Auto) (1.00-4.00) 10^3/uL [place] # (Auto) (0.10-0.80) 10^3/uL Eos # (Auto) (0.10-0.30) 10^3/uL Baso # (Auto) (0.00-0.10) 10^3/uL Immature Gran # (Auto) (0.00-0.50) 10^3/uL Sodium (136-145) mmol/L Potassium (3.5-5.1) mmol/L Chloride (98-107) mmol/L Carbon Dioxide (21.0-32.0) mmol/L Anion Gap (5-15) mmol/L BUN (7-18) mg/dL Creatinine (0.51-1.17) mg/dL Est Cr Clr Drug Dosing mL/min Estimated GFR (MDRD) mL/min Glucose (70-140) mg/dL Lactic Acid (0.4-2.0) mmol/L Calcium (8.7-10.3) mg/dL Total Bilirubin (0.2-1.0) mg/dL AST (15-37) U/L ALT (14-63) U/L Alkaline Phosphatase (46-116) U/L Ammonia (11.2-31.7) umol/L Creatine Kinase (26-276) U/L Troponin I High Sens (0-76.000) pg/mL B-Natriuretic Peptide (0-100) pg/mL Total Protein (6.4-8.2) g/dL Albumin (3.40-5.00) g/dL Specimen Type [place] Urine Color Brown H (YELLOW) Urine Appearance Slightly cloudy H (CLEAR) Urine pH 5.5 (5.0-9.0) Ur Specific [place] 1.010 (1.005-1.030) Urine Protein 30 H (NEGATIVE) mg/dL Urine Glucose (UA) 100 H (NEGATIVE) mg/dL Urine Ketones Trace H (NEGATIVE) mg/dL Urine Occult Blood Trace-intact H (NEGATIVE) Urine Nitrite Negative (NEGATIVE) Urine Bilirubin Large H (NEGATIVE) Urine Urobilinogen 0.2 (0.2-1.0) E.U./dL Ur Leukocyte Esterase Negative (NEGATIVE) U Hyaline Cast (Auto) Few Urine RBC 0-5 (0-5) /HPF Urine WBC 0-5 (0-5) /HPF Ur Epithelial Cells Moderate H /LPF Urine Bacteria Few (NONE TO FEW) /HPF Granular Casts (Auto) Few Meds: Medications Generic Name Dose Route Start Last Admin Trade Name Freq PRN Reason Stop Dose Admin Sodium Chloride 500 mls @ 75 mls/hr 10/26/20 17:15 10/26/20 17:26 Sodium Chloride 3% IV 75 mls/hr ASDIRECTED RANDA Administration Albumin Human 25 gm/ Premix 100 mls @ 50 mls/hr 10/26/20 17:45 10/26/20 18:05 IV 10/26/20 19:44 50 mls/hr ONETIME ONE Administration Sodium Chloride 10 ml 10/26/20 16:04 10/26/20 18:16 Sodium Chloride 0.9% 10 Ml Syringe FLUSH 10 ml Q8HR PRN Administration keep vein open Discontinued Medications Generic Name Dose Route Start Last Admin Trade Name Freq PRN Reason Stop Dose Admin Hydromorphone HCl 1 mg 10/26/20 18:24 Hydromorphone 1 Mg/Ml Syringe IVPUSH 10/26/20 18:25 ONETIME ONE Sodium Chloride 1,000 mls @ 999 mls/hr 10/26/20 16:12 10/26/20 16:18 Normal Saline IV 10/26/20 17:12 999 mls/hr .BOLUS ONE Administration Ondansetron HCl 8 mg 10/26/20 18:09 10/26/20 18:16 Ondansetron 4 Mg/2 Ml Sdv IVPUSH 10/26/20 18:10 8 mg ONETIME ONE Administration - Radiology Interpretation Free Text/Narrative:: Mild vascular congestion with cardiomegaly no effusions no infiltrates. - Re-Assessments/Exams Free Text/Narrative Re-Assessment/Exam: 10/26/20 18:19 Initial phone call placed 1720 [facility] who declines admission secondary of no bed space. I was able to speak with Dr. Watson course with recommendations for 2 hours of the 3% infusion possibility of albumin and reassess lab work in 2 hours time. Consideration for lactulose was also discussed and questioning if this was alcoholic hepatitis involvement. Recommendation for checking with other facilities was given due to the time delay for admission. Contact with this [facility] in [place] at 1738 who declined processing as they have no beds other than STEMI stroke and trauma. At 1750 hrs. [facility] returned a call to me questioning if we had found placement. I was able him to speak with Dr. Rodriguez excepting and arrangements for transportation will be made with 3% to be stopped at 1845, 25 g 25% albumin to be infused in route. Departure - Departure Time of Disposition: 18:30 Disposition: DC/Tfer to [facility] 02 Condition: Fair Clinical Impression: Blood glucose elevated, Hyponatremia, Hypochloremia Hepatic failure, acute Qualifiers: Hepatic coma status: without hepatic coma Qualified Code(s): K72.00 - Acute and subacute hepatic failure without coma - Discharge Information *PRESCRIPTION DRUG MONITORING PROGRAM REVIEWED*: Not Applicable *COPY OF PRESCRIPTION DRUG MONITORING REPORT IN PATIENT NATHALIE: Not Applicable Referrals: Hanh Leonard MD [Primary Care Provider] - Forms: ED Department Discharge Additional Instructions: Contact with [facility] for referral, Dr. Rodriguez. Agrees to transfer via advanced life support ground ambulance. We discussed cessation of the 3% saline at 1845 while in route. 25 g of 25% albumin will be administered in its entirety. 8 mg Zofran was given IV prior to departing the facility. Whyte catheter continues to drain significantly jaundiced. Urine. He is resting comfortably conversing with us but is stating he is approaching do time for his chronic opioid management. Packing is left in place to the left nares as he has no complaint of it at this time. Sepsis Event Note (ED) - Evaluation Sepsis Screening Result: No Definite Risk - Focused Exam Vital Signs: Vital Signs Temp Pulse Resp BP Pulse Ox 10/26/20 18:10 80 18 130/64 96 10/26/20 17:53 81 16 100/57 L 95 10/26/20 17:29 82 18 104/58 L 95 10/26/20 17:08 80 18 104/59 L 95 10/26/20 16:30 79 11 L 119/57 L 97 10/26/20 16:15 80 12 114/54 L 96 10/26/20 15:58 97.4 F 84 17 118/47 L 96 ED Communication - ED Communication Date/Time Date: 10/26/20 Time Called: 17:20 - Discussed Case With (1) Discussed Case With (1): Inpatient Access Nurse Person/s Notified (1): [place] (No room for admit) - Discussed Case With (2) Discussed Case With (2): Admitting Provider Person/s Notified (3): Michael Date: 10/26/20 Time Called: 17:55 (admission approved) - Problem List & Annotations (1) Painless jaundice SNOMED Code(s): 59956952, 62797524 Code(s): R17 - UNSPECIFIED JAUNDICE Status: Acute Priority: High Current Visit: Yes (2) Hyponatremia SNOMED Code(s): 44566346 Code(s): E87.1 - HYPO-OSMOLALITY AND HYPONATREMIA Status: Acute Current Visit: Yes (3) Hypochloremia SNOMED Code(s): 98274492 Code(s): E87.8 - OTH DISORDERS OF ELECTROLYTE AND FLUID BALANCE, NEC Status: Acute Priority: High Current Visit: Yes (4) Hepatic failure, acute SNOMED Code(s): 438273094 Code(s): K72.00 - ACUTE AND SUBACUTE HEPATIC FAILURE WITHOUT COMA Status: Acute Priority: High Current Visit: Yes Qualifiers: Hepatic coma status: without hepatic coma Qualified Code(s): K72.00 - Acute and subacute hepatic failure without coma (5) Renal failure SNOMED Code(s): 28560021 Code(s): N19 - UNSPECIFIED KIDNEY FAILURE Status: Acute Priority: High Current Visit: Yes Qualifiers: Renal failure chronicity: acute Acute renal failure type: unspecified Qualified Code(s): N17.9 - Acute kidney failure, unspecified (6) Electrolyte abnormality SNOMED Code(s): 799494735 Code(s): E87.8 - OTH DISORDERS OF ELECTROLYTE AND FLUID BALANCE, NEC Status: Acute Priority: High Current Visit: Yes (7) Blood glucose elevated SNOMED Code(s): 84492265 Code(s): R73.9 - HYPERGLYCEMIA, UNSPECIFIED Status: Chronic Priority: Medium Current Visit: No (8) Anemia SNOMED Code(s): 891968864 Code(s): D64.9 - ANEMIA, UNSPECIFIED Status: Acute Current Visit: Yes Qualifiers: Anemia type: other cause (9) Epistaxis, recurrent SNOMED Code(s): 869552747, 949005278 Code(s): R04.0 - EPISTAXIS Status: Chronic Priority: Medium Current Visit: Yes - Problem List Review Problem List Initiated/Reviewed/Updated: Yes - My Orders Last 24 Hours: My Active Orders 10/26/20 16:04 Peripheral IV Care [RC] . DIRECTED Sodium Chloride 0.9% [Saline Flush] 10 ml FLUSH Q8HR PRN Peripheral IV Insertion Adult [OM.PC] Routine 10/26/20 16:36 EKG Documentation Completion [RC] ASDIRECTED EKG 12 Lead [EK] Urgent 10/26/20 16:37 Urinary Catheter Assessment [RC] ASDIRECTED 10/26/20 16:45 Insert Whyte Catheter [Insert Urinary Catheter] [OM.PC] Q24H 10/26/20 17:15 Sodium Chloride 3% 500 ml IV ASDIRECTED 10/26/20 17:45 Albumin 25% [Flexbumin 25%] 25 gm Premix Bag 1 bag IV ONETIME - Assessment/Plan Last 24 Hours: My Active Orders 10/26/20 16:04 Peripheral IV Care [RC] . DIRECTED Sodium Chloride 0.9% [Saline Flush] 10 ml FLUSH Q8HR PRN Peripheral IV Insertion Adult [OM.PC] Routine 10/26/20 16:36 EKG Documentation Completion [RC] ASDIRECTED EKG 12 Lead [EK] Urgent 10/26/20 16:37 Urinary Catheter Assessment [RC] ASDIRECTED 10/26/20 16:45 Insert Whyte Catheter [Insert Urinary Catheter] [OM.PC] Q24H 10/26/20 17:15 Sodium Chloride 3% 500 ml IV ASDIRECTED 10/26/20 17:45 Albumin 25% [Flexbumin 25%] 25 gm Premix Bag 1 bag IV ONETIME Plan: Contact with [facility] for referral, Dr. Rodriguez. Agrees to transfer via advanced life support ground ambulance. We discussed cessation of the 3% saline at 1845 while in route. 25 g of 25% albumin will be administered in its entirety. 8 mg Zofran was given IV prior to departing the facility. Whyte catheter continues to drain significantly jaundiced. Urine. He is resting comfortably conversing with us but is stating he is approaching do time for his chronic opioid management. Packing is left in place to the left nares as he has no complaint of it at this time.
[2020-10-26 16:51] LABS: ANION GAP 16.9 mmol/L (5-15)
--- NOTE | 2020-10-26 16:54 | CR ---
[id number] RAD/RAD Chest PA or AP 1V EXAM: RAD Chest PA or AP 1V INDICATION: EDEMA. COMPARISON: June 2016. DISCUSSION/IMPRESSION: Borderline cardiomegaly and central vascular congestion. No evidence of parenchymal edema. No parenchymal consolidation, effusion, or other significant abnormality. Jim Bowling MD 10/26/20 [id number] Thank you for allowing us to participate in the care of your patient.
[2020-10-26] MEDS ORDERED: Sodium Chloride 3% 500 ML IV SCH (17:15)
[2020-10-26] MEDS ORDERED: Albumin 25% 25 GM in Premix Bag 1 BAG IV ONE (17:45)
[2020-10-26] MEDS ORDERED: Ondansetron 4 MG/2 ML SDV IVPUSH ONE (18:09)
[2020-10-26 18:10] VITALS: BP 130/64; PULSE 80
[2020-10-26] MEDS ORDERED: HYDROmorphone 1 MG/ML Syringe IVPUSH ONE (18:24)
== END 2020-10-26 18:45 ==
LOC: KA.ED 15:50
DX: K72.00 Acute and subacute hepatic failure without coma (principal); E87.1 Hypo-osmolality and hyponatremia; E87.8 Other disorders of electrolyte and fluid balance, not elsewhere classified; E11.40 Type 2 diabetes mellitus with diabetic neuropathy, unspecified; J45.909 Unspecified asthma, uncomplicated; M19.90 Unspecified osteoarthritis, unspecified site; Z87.891 Personal history of nicotine dependence; Z88.8 Allergy status to other drugs, medicaments and biological substances; Z79.82 Long term (current) use of aspirin; Z79.899 Other long term (current) drug therapy
CPT/HCPCS: 36415; 51702; 71045; 80053; 81001; 82140; 82550; 83605; 83880; 84484; 85025; 93005; 96365; 96374; 96375; 99285; J1170; J2405; J7030; J7131; P9047; 99284